=== PATIENT | male | born 1960 | race Caucasian/White ===

== ENCOUNTER 2019-03-31 00:51 | Day surgery (SDC) | payer BC, SELFPAY ==
[2019-03-28 16:12] VITALS: BMI 34.0
[2019-03-31] MEDS: LACTATED RINGERS 1,000 ML 150 ML IV CONT (08:14)
[2019-03-31 08:17] VITALS: BP 178/81; PULSE 71; RESP 16; TEMP 36.5; O2SAT 97
[2019-03-31 08:17] LABS: Glucose Point of Care 259 (65-105)
--- NOTE | 2019-03-31 08:21 | PM.HPGS ---
History of Present Illness History of Present Illness Consent: Risks, benefits, and alternatives have been discussed and questions answered. Patient agrees to proceed with procedure. Chief complaint: Hx Colon Polyps Narrative: Fazal Lentz is a 58 year old W male referred for screening colonoscopy secondary to history of colonic polyps. Patient has small adenomatous polyp removed 7 years ago. Patient is asymptomatic and there is no family history of colon polyps PMFSH Past Medical History Medical History Diabetes High blood pressure High cholesterol Social History Social History Smoking status: Never smoker Alcohol intake: current Meds Home Medications and Allergies Home Medications Medication Instructions Recorded Confirmed Type fenofibrate 160 mg tablet 160 mg PO DAILY 03/21/19 03/28/19 History lisinopril 40 mg tablet 40 mg PO DAILY 03/21/19 03/28/19 History metformin 1,000 mg tablet 1,000 mg PO BID 03/21/19 03/28/19 History irbesartan 150 mg PO DAILY 03/28/19 03/28/19 History sildenafil 50 mg PO PRN PRN 03/28/19 03/28/19 History Allergies Allergy/AdvReac Type Severity Reaction Status Date / Time No Known Allergies Allergy Verified 03/28/19 10:36 Vital Signs Vital Signs - 24 hr 03/31/19 08:17 Temperature 36.5 C Pulse Rate 71 Respiratory Rate 16 Blood Pressure 178/81 H Pulse Oximetry 97 Exam Const: Orientation/consciousness: patient oriented x3 Resp: Auscultation: clear to auscultation bilaterally Cardio: Rate: regular rate Rhythm: regular rhythm Heart sounds: no murmurs GI: GI Palp: Yes Soft to palpation, No Tenderness to palpation present (GI), Yes No hepatosplenomegaly present and No Palpable mass present Auscultation: normal bowel sounds Neuro: General: patient oriented x3 and no focal motor deficits Extrem: General: no pedal edema Assessment and Plan Additional Plan Screening colonoscopy secondary history of colonic polyps
--- NOTE | 2019-03-31 08:32 | WPDANESEPPF ---
Anes - Initial Pre Proc Eval Procedure: Operation Date: 03/31/19 09:00 Proposed Procedures p Screening Colonoscopy - Jhony Garcia MD Date/Time: 03/31/19 08:32 Surgeon: Jhony Garcia MD Pre Op Diagnosis: Hx Colon Polyps Patient Data Age: 58 Gender: M Height: 5 ft 9 in Weight: 104 kg Last Vital Signs Temp 36.5 C 03/31/19 08:17 Pulse 71 03/31/19 08:17 Resp 16 03/31/19 08:17 BP 178/81 H 03/31/19 08:17 Pulse Ox 97 03/31/19 08:17 Allergies Allergy/AdvReac Type Severity Reaction Status Date / Time No Known Allergies Allergy Verified 03/28/19 10:36 Home Medications Medication Instructions Recorded Confirmed Type fenofibrate 160 mg tablet 160 mg PO DAILY 03/21/19 03/28/19 History lisinopril 40 mg tablet 40 mg PO DAILY 03/21/19 03/28/19 History metformin 1,000 mg tablet 1,000 mg PO BID 03/21/19 03/28/19 History irbesartan 150 mg PO DAILY 03/28/19 03/28/19 History sildenafil 50 mg PO PRN PRN 03/28/19 03/28/19 History Laboratory Tests 03/31/19 08:13 POC Capillary Glucose 259 mg/dl H mg/dl (65-105) Patient hx anesthesia problems: none Family hx anesthesia problems: none [facility] Past Medical History Medical History (Updated 03/31/19 @ 08:34 by Wilberto Montoya MD) Diabetes High blood pressure High cholesterol OLAMIDE (obstructive sleep apnea) Family History Family History Father Lung cancer Coronary artery disease Mother Hearing loss Unknown Heart disease Social History Social History Smoking status: Never smoker Alcohol intake: current Anes - Eval Final PreProcedure Day of Procedure 03/31/19 08:32 Patient weight: obese Heart: regular rate and rhythm Lungs: clear to auscultation Airway: Mallampati scale class II Neurological: alert and oriented Last oral intake: >/= 8 hours ASA classification: III Emergent: no Anesthetic plan: proceed Anesthesia type and monitoring: general GIVS and standard monitoring Informed Consent: The patient's anesthetic plan and its attendant risks and benefits were discussed with the patient/family/POA. Questions were solicited and answers provided to the satisfaction of the patient/family/POA.
[2019-03-31 09:43] VITALS: BP 128/76; PULSE 69; RESP 19; O2SAT 97
[2019-03-31 09:53] VITALS: BP 150/90; PULSE 73; RESP 15; O2SAT 97
[2019-03-31 10:12] VITALS: BP 164/92; PULSE 64; RESP 15; O2SAT 99
--- NOTE | 2019-03-31 10:15 | SUR.PHASEII ---
Pt having MRI tomorrow. Information on [facility] given with instructions to notify MRI facility before having MRI. Patient and family stated understanding.
== END 2019-03-31 10:14 | disposition home or self-care (01) ==
PROVIDERS: PCP Emergency Medicine; Visit Provider Internal Medicine Gastroenterology
PROC: 0DJD8ZZ Inspection of Lower Intestinal Tract, Via Natural or Artificial Opening Endoscopic (ICD-10-PCS; CPT 45378; principal; 2019-03-31 09:00)
DX: Z12.11 Encounter for screening for malignant neoplasm of colon (principal); K63.5 Polyp of colon; K57.30 Diverticulosis of large intestine without perforation or abscess without bleeding; I10 Essential (primary) hypertension; E78.00 Pure hypercholesterolemia, unspecified; E11.9 Type 2 diabetes mellitus without complications; G47.33 Obstructive sleep apnea (adult) (pediatric); Z79.84 Long term (current) use of oral hypoglycemic drugs; E66.9 Obesity, unspecified; Z68.33 Body mass index [BMI] 33.0-33.9, adult
CPT/HCPCS: 45385; 88305; J2001; J2704; J7120

== ENCOUNTER → 2019-04-01 10:19 | Outpatient (CLI) | payer BC, SELFPAY ==
--- NOTE | ~2019-04-01 | US_ITS ---
EXAMINATION: US aorta DATE: 04/01/2019 10:49 INDICATION: Family history of abdominal aortic aneurysm. TECHNIQUE: Grayscale, color Doppler, and pulsed Doppler images of the aorta and common iliac arteries were obtained. COMPARISON: None. FINDINGS: The aorta is normal in caliber. The right common iliac artery is normal in caliber. The left common i liac artery is normal in caliber. IMPRESSION: 1. No abdominal aortic aneurysm. Reviewed, dictated and finalized at location A. [facility]
== END ==
PROVIDERS: PCP Emergency Medicine; Visit Provider Emergency Medicine
DX: Z82.49 Family history of ischemic heart disease and other diseases of the circulatory system (principal)
CPT/HCPCS: 76775

== ENCOUNTER → 2020-05-12 00:50 | Outpatient (CLI) | payer BC, SELFPAY ==
[2020-05-12 19:12] LABS: SARS-CoV-2 RNA PCR Negative
== END ==
PROVIDERS: PCP Emergency Medicine; Visit Provider Internal Medicine Gastroenterology
DX: Z01.812 Encounter for preprocedural laboratory examination (principal); Z20.822 Contact with and (suspected) exposure to COVID-19
CPT/HCPCS: C9803; U0003; U0005

== ENCOUNTER 2020-05-15 01:40 | Day surgery (SDC) | payer BC, SELFPAY ==
[2020-05-03 13:29] VITALS: BMI 33.8
--- NOTE | 2020-05-15 08:23 | P.PNAN_ITS ---
Anes - Initial Pre Proc Eval Procedure: Operation Date: 05/15/20 09:30 Proposed Procedures p Screening Colonoscopy - Basim Kim MD Date/Time: 05/15/20 08:23 Surgeon: Basim Kim MD Pre Op Diagnosis: Hx Of Colon Polyps Patient Data Age: 59 Gender: M Height: 5 ft 9 in Weight: 104 kg Allergies Allergy/AdvReac Type Severity Reaction Status Date / Time banana Allergy Severe Swelling Verified 05/03/20 13:32 of Lip/Tongue/Throat Fish Containing Products Allergy Severe Swelling Verified 05/03/20 13:32 of Lip/Tongue/Throat Home Medications Medication Instructions Recorded Confirmed Type fenofibrate 160 mg tablet 160 mg PO DAILY 03/21/19 05/03/20 History lisinopril 40 mg tablet 40 mg PO DAILY 03/21/19 05/03/20 History metformin 1,000 mg tablet 1,000 mg PO BID 03/21/19 05/03/20 History irbesartan 150 mg PO DAILY 03/28/19 05/03/20 History Patient hx anesthesia problems: none Family hx anesthesia problems: none [facility] Past Medical History Medical History (Updated 03/31/19 @ 08:34 by Wilberto Montoya MD) Diabetes High blood pressure High cholesterol OLAMIDE (obstructive sleep apnea) Family History Family History Father Lung cancer Coronary artery disease Mother Hearing loss Unknown Heart disease Social History Social History Smoking status: Never smoker Alcohol intake: current Drinks per week: 2 Substance use: never Substance use type: does not use Living arrangements: with family Spiritual care concerns: No Anes - Eval Final PreProcedure Day of Procedure 05/15/20 08:23 Patient weight: obese Heart: regular rate and rhythm Lungs: clear to auscultation Airway: Mallampati scale class II Neurological: alert and oriented Last oral intake: >/= 8 hours ASA classification: III Emergent: no Anesthetic plan: proceed Anesthesia type and monitoring: general GIVS and standard monitoring Informed Consent: The patient's anesthetic plan and its attendant risks and benefits were discussed with the patient/family/POA. Questions were solicited and answers provided to the satisfaction of the patient/family/POA.
[2020-05-15 08:32] LABS: Glucose Point of Care 181 (65-105)
[2020-05-15] MEDS: LACTATED RINGERS 1,000 ML 150 ML IV CONT (08:37)
[2020-05-15 08:44] VITALS: BP 172/86; PULSE 70; RESP 18; TEMP 36.2; O2SAT 100
[2020-05-15 08:47] VITALS: BMI 34.6
--- NOTE | 2020-05-15 08:59 | PM.HPGS ---
History of Present Illness History of Present Illness Consent: Risks, benefits, and alternatives have been discussed and questions answered. Patient agrees to proceed with procedure. Chief complaint: Hx Of Colon Polyps Narrative: Fazal Lentz is a 59 year old male here for colon cancer screening. He has history of polyps Review of Systems Review of Systems: All systems reviewed & are unremarkable except as noted in HPI and below PMFSH Past Medical History Medical History Diabetes High blood pressure High cholesterol OLAMIDE (obstructive sleep apnea) Family History Family History Father Lung cancer Coronary artery disease Mother Hearing loss Unknown Heart disease Social History Social History Smoking status: Never smoker Alcohol intake: current Drinks per week: 2 Substance use: never Substance use type: does not use Living arrangements: with family Spiritual care concerns: No Meds Home Medications and Allergies Home Medications Medication Instructions Recorded Confirmed Type fenofibrate 160 mg tablet 160 mg PO DAILY 03/21/19 05/15/20 History lisinopril 40 mg tablet 40 mg PO DAILY 03/21/19 05/15/20 History metformin 1,000 mg tablet 1,000 mg PO BID 03/21/19 05/15/20 History irbesartan 150 mg PO DAILY 03/28/19 05/15/20 History Allergies Allergy/AdvReac Type Severity Reaction Status Date / Time banana Allergy Severe Swelling Verified 05/03/20 13:32 of Lip/Tongue/Throat Fish Containing Products Allergy Severe Swelling Verified 05/03/20 13:32 of Lip/Tongue/Throat Vital Signs Vital Signs - 24 hr 05/15/20 08:44 Temperature 36.2 C L Pulse Rate 70 Respiratory Rate 18 Blood Pressure 172/86 H Pulse Oximetry 100 Exam Resp: Auscultation: clear to auscultation bilaterally Cardio: Rate: regular rate Rhythm: regular rhythm GI: GI Palp: Yes Soft to palpation and No Tenderness to palpation present (GI) Assessment and Plan Assessment and plan (1) Colon cancer screening: Code(s): Z12.11 - Encounter for screening for malignant neoplasm of colon Status: Acute Assessment and Plan: Colonoscopy with possible biopsy or polypectomy or cautery or injection of substances.
--- NOTE | 2020-05-15 09:16 | PM.HPGS ---
History of Present Illness History of Present Illness Consent: Risks, benefits, and alternatives have been discussed and questions answered. Patient agrees to proceed with procedure. Chief complaint: Hx Of Colon Polyps Narrative: Fazal Lentz is a 59 year old male here for colon cancer screening and follow-up of an incompletely removed polyp Review of Systems Review of Systems: All systems reviewed & are unremarkable except as noted in HPI and below PMFSH Past Medical History Medical History Diabetes High blood pressure High cholesterol OLAMIDE (obstructive sleep apnea) Family History Family History Father Lung cancer Coronary artery disease Mother Hearing loss Unknown Heart disease Social History Social History Smoking status: Never smoker Alcohol intake: current Drinks per week: 2 Substance use: never Substance use type: does not use Living arrangements: with family Spiritual care concerns: No Meds Home Medications and Allergies Home Medications Medication Instructions Recorded Confirmed Type fenofibrate 160 mg tablet 160 mg PO DAILY 03/21/19 05/15/20 History lisinopril 40 mg tablet 40 mg PO DAILY 03/21/19 05/15/20 History metformin 1,000 mg tablet 1,000 mg PO BID 03/21/19 05/15/20 History irbesartan 150 mg PO DAILY 03/28/19 05/15/20 History Allergies Allergy/AdvReac Type Severity Reaction Status Date / Time banana Allergy Severe Swelling Verified 05/03/20 13:32 of Lip/Tongue/Throat Fish Containing Products Allergy Severe Swelling Verified 05/03/20 13:32 of Lip/Tongue/Throat Vital Signs Vital Signs - 24 hr 05/15/20 08:44 Temperature 36.2 C L Pulse Rate 70 Respiratory Rate 18 Blood Pressure 172/86 H Pulse Oximetry 100 Exam Resp: Auscultation: clear to auscultation bilaterally Cardio: Rate: regular rate Rhythm: regular rhythm GI: GI Palp: Yes Soft to palpation and No Tenderness to palpation present (GI) Assessment and Plan Assessment and plan (1) Personal history of colonic polyps: Code(s): Z86.010 - Personal history of colonic polyps Status: Acute Assessment and Plan: Colonoscopy with possible biopsy or polypectomy or cautery or injection of substances.
[2020-05-15 09:41] VITALS: BP 152/93; PULSE 76; RESP 22; O2SAT 98
[2020-05-15 09:51] VITALS: BP 154/77; PULSE 64; RESP 22; O2SAT 99
[2020-05-15 10:01] VITALS: BP 169/93; PULSE 66; RESP 20; O2SAT 100
--- NOTE | 2020-05-15 10:10 | SUR.PHASEII ---
PT STATES HE HAS NOT TAKEN HIS BLOOD PRESSURE MEDS TODAY BUT WILL UPON ARRIVAL HOME.
== END 2020-05-15 10:18 | disposition home or self-care (01) ==
PROVIDERS: PCP Emergency Medicine; Visit Provider Internal Medicine Gastroenterology
PROC: 0DJD8ZZ Inspection of Lower Intestinal Tract, Via Natural or Artificial Opening Endoscopic (ICD-10-PCS; CPT 45378; principal; 2020-05-15 09:30)
DX: Z12.11 Encounter for screening for malignant neoplasm of colon (principal); D12.3 Benign neoplasm of transverse colon; K57.30 Diverticulosis of large intestine without perforation or abscess without bleeding; E11.9 Type 2 diabetes mellitus without complications; I10 Essential (primary) hypertension; E78.00 Pure hypercholesterolemia, unspecified; G47.33 Obstructive sleep apnea (adult) (pediatric); Z79.84 Long term (current) use of oral hypoglycemic drugs; E66.9 Obesity, unspecified; Z68.34 Body mass index [BMI] 34.0-34.9, adult
CPT/HCPCS: 45385; 82948; 88305; J2704; J7120

== ENCOUNTER 2021-04-03 08:22 | Outpatient (CLI) | payer OTHER, SELFPAY ==
[2021-04-03 18:56] LABS: Basophils Absolute Auto 0.1 K/mm3 (0.0-0.1); Basophils Percent Auto 1.2 % (0.2-1.2); Eosinophils Absolute Auto 0.5 K/mm3 (0-0.3); Eosinophils Percent Auto 9.8 % (0-4.4); Hematocrit 45.1 % (42.0-52.0); Hemoglobin 14.3 g/dL (14.0-18.0); Immature Granulocyte Absolute 0.01 K/mm3 (0.00-0.031); Immature Granulocyte Percent A 0.2 % (0-0.5); Mean Corpuscular HGB Conc 31.7 g/dl (32-36); Mean Corpuscular Hemoglobin 31.2 pg (26-34); Mean Corpuscular Volume 98.3 fl (80-100); Mean Platelet Volume 12.8 fl (7.4-10.4); Monocytes Absolute Auto 0.4 K/mm3 (0.1-0.6); Monocytes Percent Auto 7.2 % (2.6-8.5); Neutrophils Absolute Auto 2.9 K/mm3 (1.3-6.7); Neutrophils Percent Auto 57.6 % (45.5-73.1); Platelet Count Result 206 k/mm3 (150-375); Red Blood Count 4.59 M/mm3 (4.6-6.20); Red Cell Distribution Width 12.4 % (11.5-14.5)
[2021-04-03 19:16] LABS: Alanine Aminotransferase 32 U/L (4-50); Albumin Level 4.6 g/dL (3.5-5.1); Alkaline Phosphatase 64 U/L (38-126); Anion Gap 7 mmol/L (8-16); Aspartate Amino Transferase 26 U/L (17-59); Bilirubin,Total 0.4 mg/dL (0.2-1.3); Blood Urea Nitrogen 13 mg/dL (9-20); Calcium 10.2 mg/dL (8.4-10.2); Carbon Dioxide 28 mmol/L (22-30); Chloride 104 mmol/L (98-107); Cholesterol 137 mg/dL (0-200); Estimated Glomerular Filt Rate > 60; Glucose 197 mg/dL (65-110); HDL Direct 42 mg/dL; Potassium 4.5 mmol/L (3.4-5.0); Sodium 139 mmol/L (137-145); Triglycerides 237 mg/dL (<150)
[2021-04-03 19:30] LABS: LDL Cholesterol Direct 63 mg/dL
[2021-04-03 19:31] LABS: Hemoglobin A1C 8.2 % (<5.7)
[2021-04-03 19:45] LABS: Creatinine Urine 93.1 mg/dL
[2021-04-03 19:47] LABS: Prostate Specific Antigen 1.3 ng/mL (< OR = 4.0)
[2021-04-03 19:49] LABS: MALB Creatinine Ratio 8.4 mg/g (0-30); Microalbumin Urine Random 7.8 mg/L (0-16.7)
[2021-04-07 14:59] LABS: Testosterone Free 81.3 pg/mL (35.0-155.0); Testosterone Total 437 ng/dL (250-1100)
== END 2021-04-03 08:23 | disposition home or self-care (01) ==
LOC: ANHBWCLAB 08:24
PROVIDERS: PCP Family Medicine; Visit Provider Family Medicine
DX: Z00.00 Encounter for general adult medical examination without abnormal findings (principal); E11.9 Type 2 diabetes mellitus without complications; N52.9 Male erectile dysfunction, unspecified
CPT/HCPCS: 36415; 80053; 80061; 82043; 83036; 84153; 84402; 84403; 85025; G0103

== ENCOUNTER 2021-07-23 07:43 | Outpatient (CLI) | payer OTHER, SELFPAY ==
[2021-07-23 21:03] LABS: Hemoglobin A1C 7.8 % (<5.7)
[2021-07-23 21:13] LABS: Creatinine Urine 266.2 mg/dL
[2021-07-23 21:18] LABS: MALB Creatinine Ratio 6.3 mg/g (0-30); Microalbumin Urine Random 16.9 mg/L (0-16.7)
== END 2021-07-23 07:44 | disposition home or self-care (01) ==
PROVIDERS: PCP Family Medicine; Visit Provider Family Medicine
DX: E11.9 Type 2 diabetes mellitus without complications (principal)
CPT/HCPCS: 36415; 82043; 83036

== ENCOUNTER 2022-01-27 13:52 | Outpatient (CLI) | payer OTHER, SELFPAY ==
[2022-01-27 19:07] LABS: Alanine Aminotransferase 30 U/L (6-50); Albumin Level 4.6 g/dL (3.5-5.1); Alkaline Phosphatase 95 U/L (38-126); Anion Gap 14 mmol/L (8-16); Aspartate Amino Transferase 98 U/L (17-59); Bilirubin,Total 0.6 mg/dL (0.2-1.3); Blood Urea Nitrogen 15 mg/dL (9-20); Calcium 9.7 mg/dL (8.4-10.2); Carbon Dioxide 22 mmol/L (22-30); Chloride 102 mmol/L (98-107); Estimated Glomerular Filt Rate > 60; Glucose 182 mg/dL (65-110); Potassium 4.5 mmol/L (3.4-5.0); Sodium 138 mmol/L (137-145)
== END 2022-01-27 13:53 | disposition home or self-care (01) ==
LOC: ANHBWCLAB 13:53
PROVIDERS: PCP Family Medicine; Visit Provider Family Medicine
DX: E11.9 Type 2 diabetes mellitus without complications (principal); E87.1 Hypo-osmolality and hyponatremia; G47.33 Obstructive sleep apnea (adult) (pediatric); I10 Essential (primary) hypertension; I25.10 Atherosclerotic heart disease of native coronary artery without angina pectoris; I26.92 Saddle embolus of pulmonary artery without acute cor pulmonale; I46.9 Cardiac arrest, cause unspecified; I50.9 Heart failure, unspecified; I95.1 Orthostatic hypotension
CPT/HCPCS: 36415; 80053

== ENCOUNTER 2022-02-26 07:28 | Outpatient (RCR) | payer OTHER, SELFPAY ==
[2022-02-10 09:30] VITALS: BMI 25.7
== END 2022-03-28 15:46 | disposition home or self-care (01) ==
LOC: ANHWOC 07:28
PROVIDERS: PCP Family Medicine; Visit Provider Family Medicine
DX: L24.A9 Irritant contact dermatitis due friction or contact with other specified body fluids (principal); L92.9 Granulomatous disorder of the skin and subcutaneous tissue, unspecified
CPT/HCPCS: 99212; 99213; G0463

== ENCOUNTER 2022-05-07 11:49 | Outpatient (CLI) | payer OTHER, SELFPAY ==
[2022-05-07 19:21] LABS: Basophils Percent Auto 0.6 % (0.2-1.2); Eosinophils Absolute Auto 0.3 K/mm3 (0-0.3); Eosinophils Percent Auto 3.7 % (0-4.4); Hematocrit 39.9 % (42.0-52.0); Hemoglobin 12.7 g/dL (14.0-18.0); Immature Granulocyte Absolute 0.02 K/mm3 (0.00-0.031); Immature Granulocyte Percent A 0.3 % (0-0.5); Lymphocytes Absolute Auto 1.33 K/mm3 (0.9-3.2); Lymphocytes Percent Auto 18.8 % (18.3-44.2); Mean Corpuscular HGB Conc 31.8 g/dl (32-36); Mean Corpuscular Hemoglobin 29.5 pg (26-34); Mean Corpuscular Volume 92.6 fl (80-100); Mean Platelet Volume 10.8 fl (7.4-10.4); Monocytes Absolute Auto 0.5 K/mm3 (0.1-0.6); Monocytes Percent Auto 6.8 % (2.6-8.5); Neutrophils Percent Auto 69.8 % (45.5-73.1); Platelet Count Result 332 k/mm3 (150-375); Red Blood Count 4.31 M/mm3 (4.6-6.20); Red Cell Distribution Width 14.8 % (11.5-14.5); White Blood Count 7.1 K/mm3 (4.5-10.0)
[2022-05-07 20:07] LABS: Creatinine Urine 68.9 mg/dL
[2022-05-07 20:13] LABS: Alanine Aminotransferase 46 U/L (6-50); Albumin Level 4.6 g/dL (3.5-5.1); Alkaline Phosphatase 50 U/L (38-126); Anion Gap 11 mmol/L (8-16); Aspartate Amino Transferase 70 U/L (17-59); Bilirubin,Total 0.5 mg/dL (0.2-1.3); Blood Urea Nitrogen 18 mg/dL (9-20); Calcium 9.9 mg/dL (8.4-10.2); Carbon Dioxide 27 mmol/L (22-30); Chloride 101 mmol/L (98-107); Estimated Glomerular Filt Rate > 60; Glucose 147 mg/dL (65-110); Potassium 4.4 mmol/L (3.4-5.0); Sodium 139 mmol/L (137-145)
[2022-05-07 20:15] LABS: Microalbumin Urine Random 64.8 mg/L (0-16.7)
[2022-05-07 20:44] LABS: Hemoglobin A1C 6.3 % (<5.7)
== END 2022-05-07 11:50 | disposition home or self-care (01) ==
LOC: ANHBWCLAB 11:50
PROVIDERS: PCP Family Medicine; Visit Provider Family Medicine
DX: D64.9 Anemia, unspecified (principal); E11.9 Type 2 diabetes mellitus without complications; E87.1 Hypo-osmolality and hyponatremia; G47.33 Obstructive sleep apnea (adult) (pediatric); I10 Essential (primary) hypertension; I25.10 Atherosclerotic heart disease of native coronary artery without angina pectoris; I26.92 Saddle embolus of pulmonary artery without acute cor pulmonale; I50.9 Heart failure, unspecified; G62.9 Polyneuropathy, unspecified; R29.898 Other symptoms and signs involving the musculoskeletal system
CPT/HCPCS: 36415; 80053; 82043; 82607; 83036; 85025

== ENCOUNTER 2022-06-23 11:00 | Outpatient (RCR) | payer OTHER, SELFPAY ==
[2022-03-21 15:33] VITALS: PULSE 85
== END 2022-06-23 14:52 | disposition home or self-care (01) ==
LOC: ANHCPREHAB 11:00
PROVIDERS: PCP Family Medicine; Visit Provider Family Medicine
DX: I25.2 Old myocardial infarction (principal)
CPT/HCPCS: 93798

== ENCOUNTER 2022-08-14 11:30 | Outpatient (CLI) | payer OTHER, SELFPAY ==
--- NOTE | ~2022-08-14 | XR_ITS ---
Clinical Indication: Abnormal weight loss PA and lateral views of the chest: Comparison: None Findings: The lungs are clear, without evidence of focal consolidation or pleural effusion. Cardiome diastinal silhouette is within normal limits. Bones and soft tissues are unremarkable. Impression: Normal chest. Reviewed, dictated and finalized at location . Impression: Normal chest.
[2022-08-14 19:34] LABS: Alanine Aminotransferase 27 U/L (6-50); Albumin Level 4.6 g/dL (3.5-5.1); Alkaline Phosphatase 48 U/L (38-126); Anion Gap 12 mmol/L (8-16); Aspartate Amino Transferase 117 U/L (17-59); Bilirubin,Total 0.5 mg/dL (0.2-1.3); Blood Urea Nitrogen 25 mg/dL (9-20); Carbon Dioxide 23 mmol/L (22-30); Chloride 102 mmol/L (98-107); Cholesterol 107 mg/dL (0-200); Estimated Glomerular Filt Rate 56; Glucose 148 mg/dL (65-110); HDL Direct 40 mg/dL; Potassium 4.3 mmol/L (3.4-5.0); Sodium 137 mmol/L (137-145); Triglycerides 153 mg/dL (<150)
[2022-08-14 19:38] LABS: Basophils Percent Auto 0.6 % (0.2-1.2); Eosinophils Absolute Auto 0.6 K/mm3 (0-0.3); Eosinophils Percent Auto 8.5 % (0-4.4); Hematocrit 40.6 % (42.0-52.0); Immature Granulocyte Absolute 0.02 K/mm3 (0.00-0.031); Immature Granulocyte Percent A 0.3 % (0-0.5); Lymphocytes Absolute Auto 1.38 K/mm3 (0.9-3.2); Lymphocytes Percent Auto 20.5 % (18.3-44.2); Mean Corpuscular Hemoglobin 30.5 pg (26-34); Mean Corpuscular Volume 95.3 fl (80-100); Mean Platelet Volume 10.6 fl (7.4-10.4); Monocytes Absolute Auto 0.6 K/mm3 (0.1-0.6); Monocytes Percent Auto 8.2 % (2.6-8.5); Neutrophils Absolute Auto 4.2 K/mm3 (1.3-6.7); Neutrophils Percent Auto 61.9 % (45.5-73.1); Platelet Count Result 302 k/mm3 (150-375); Red Blood Count 4.26 M/mm3 (4.6-6.20); Red Cell Distribution Width 12.7 % (11.5-14.5); White Blood Count 6.7 K/mm3 (4.5-10.0)
[2022-08-14 21:14] LABS: LDL Cholesterol Direct < 30 mg/dL
== END 2022-08-14 11:31 | disposition home or self-care (01) ==
LOC: ANHBWCLAB 11:31
PROVIDERS: PCP Family Medicine; Visit Provider Nurse Practitioner Adult Health
DX: R63.4 Abnormal weight loss (principal); I10 Essential (primary) hypertension
CPT/HCPCS: 36415; 71046; 80053; 80061; 84443; 85025

== ENCOUNTER → 2022-09-16 10:38 | Outpatient (CLI) | payer OTHER, SELFPAY ==
--- NOTE | ~2022-09-16 | CT_ITS ---
Clinical Indication: Abnormal weight loss CT Scan of the Chest, Abdomen, and Pelvis with Contrast: Technique: Contiguous sections were acquired throughout the chest, abdomen, and pelvis after intraven ous administration of 100 cc of Omnipaque 350. Dose reduction technique was used on this scan by ciara montes automated exposure control and iterative reconstruction technique. The dose-length product (DL P) was 900.12 mGy-cm. Findings: There is no evidence of any significant mediastinal, hilar or axillary lymphadenopathy. Coronary [place] ry calcifications are present. There is no evidence of pleural or pericardial effusion. The lungs are clear. No pulmonary nodules or infiltrates are noted. The liver, spleen, pancreas, gallbladder, adrenals and kidneys are within normal limits. There are at herosclerotic calcifications of the aorta. No lymphadenopathy. No bowel obstruction or bowel wall thickening. There is no evidence to suggest acute appendicitis. Questionable mild urinary bladder wall thickening versus underdistention. Prostate gland is mildly en larged. No ascites. Impression: Possible cystitis. Correlate with urinalysis as indicated. No other significant findings. Reviewed, dictated and finalized at location . Impression: Possible cystitis. Correlate with urinalysis as indicated. No other significant findings.
[2022-09-16 11:03] LABS: Estimated Glomerular Filt Rate > 60
== END ==
PROVIDERS: PCP Family Medicine; Visit Provider Nurse Practitioner Adult Health
DX: D64.9 Anemia, unspecified (principal); R63.4 Abnormal weight loss; R74.8 Abnormal levels of other serum enzymes
CPT/HCPCS: 71260; 74177; Q9967

== ENCOUNTER 2022-10-08 09:34 | Outpatient (CLI) | payer OTHER, SELFPAY ==
[2022-10-08 19:46] LABS: Appearance Urine Clear (Clear); Bilirubin Urine Negative (Negative); Blood Urine Negative (Negative); Color Urine Yellow (Yellow); Glucose Urine UA 3+ mg/dL (Negative); Ketones Urine Negative (Negative); Leukocyte Esterase Ur Negative LEU/UL (Negative); Nitrate Urine Negative (Negative); Protein Urine Negative (Negative); Specific Grav Ur 1.028 (1.001-1.035); pH Urine 5.5 (5.0-9.0)
[2022-10-08 19:50] LABS: Add Urine Microscopic? NO
== END 2022-10-08 09:35 | disposition home or self-care (01) ==
LOC: ANHBWCLAB 09:35
PROVIDERS: PCP Family Medicine; Visit Provider Nurse Practitioner Adult Health
DX: N32.89 Other specified disorders of bladder (principal)
CPT/HCPCS: 81003

== ENCOUNTER 2022-11-05 21:31 | Observation (INO) | payer OTHER, SELFPAY ==
--- NOTE | ~2022-11-05 | NM_ITS ---
EXAMINATION: NM isaak stress w perfusion DATE: 11/06/2022 13:01 INDICATION: Non-ST elevation myocardial infarction. TECHNIQUE: Rest images were obtained following intravenous administration of 8.6 mCi Tc99m tetrofosmi n (Myoview). The patient was infused intravenously with Lexiscan (regadenoson). Then, 28.3 mCi Tc99m tetrofosmin (Myoview) was administered intravenously, and supine and prone stress images were obtaine d. Data was reconstructed into short axis and horizontal and vertical long axis SPECT images. Gated S PECT images were also obtained. COMPARISON: Chest CT 09/16/2022 FINDINGS: There is a large, severe, fixed perfusion defect involving mid to basal anterolateral and i nferolateral garcia and basal inferior wall of left ventricle, consistent with infarct. There is no s egmental wall motion abnormality. Left ventricular ejection fraction measures 69%. IMPRESSION: 1. Large area of severe infarct involving mid to basal anterolateral and inferolateral garcia and basa l inferior wall of left ventricle. 2. Normal left ventricular ejection fraction measuring 69%. Reviewed, dictated and finalized at location A. IMPRESSION: 1. Large area of severe infarct involving mid to basal anterolateral and infero lateral garcia and basal inferior wall of left ventricle. 2. Normal left ventricular ejection fraction measuring 69%.
--- NOTE | ~2022-11-05 | XR_ITS ---
EXAMINATION: XR chest 2V DATE: 11/05/2022 22:14 INDICATION: Chest pain TECHNIQUE: PA and lateral views of the chest are obtained. COMPARISON: 08/14/2022 FINDINGS: There are minimal opacities of the lung bases. No pleural effusion or pneumothorax. Cardiom egaly is noted. There is mild thoracic spondylosis. IMPRESSION: 1. Minimal opacities of the lung bases which could reflect atelectasis versus pneumonia versus pulmon arthur edema. Reviewed, dictated and finalized at location F. IMPRESSION: 1. Minimal opacities of the lung bases which could reflect atelectasis versus p neumonia versus pulmonary edema.
--- NOTE | 2022-11-05 21:32 | ECG_ITS ---
Measurements Intervals [place] Rate: 142 P: MA: 0 QRS: 75 QRSD: 115 T: 0 QT: 277 QTc: 426 Interpretive Statements ATRIAL FIBRILLATION WITH RAPID VENTRICULAR RESPONSE INTRAVENTRICULAR CONDUCTION DELAY BORDERLINE ST-T WAVE ABNORMALITY- ANTEROLAT/INF LEADS ABNORMAL ECG NO PREVIOUS ECG AVAILABLE FOR COMPARISON Electronically Signed On 11-06-2022 6:33:33 CDT by Abdoul Araujo D.O.
[2022-11-05 21:51] VITALS: BP 178/107; PULSE 132; RESP 19; O2SAT 99
[2022-11-05 21:53] LABS: Basophils Percent Auto 0.5 % (0.2-1.2); Eosinophils Absolute Auto 0.5 K/mm3 (0-0.3); Eosinophils Percent Auto 6.5 % (0-4.4); Hematocrit 40.8 % (42.0-52.0); Hemoglobin 13.1 g/dL (14.0-18.0); Immature Granulocyte Absolute 0.02 K/mm3 (0.00-0.031); Immature Granulocyte Percent A 0.3 % (0-0.5); Lymphocytes Absolute Auto 1.66 K/mm3 (0.9-3.2); Lymphocytes Percent Auto 22.5 % (18.3-44.2); Mean Corpuscular HGB Conc 32.1 g/dl (32-36); Mean Corpuscular Hemoglobin 30.5 pg (26-34); Mean Corpuscular Volume 95.1 fl (80-100); Mean Platelet Volume 11.3 fl (7.4-10.4); Monocytes Absolute Auto 0.4 K/mm3 (0.1-0.6); Monocytes Percent Auto 4.9 % (2.6-8.5); Neutrophils Absolute Auto 4.8 K/mm3 (1.3-6.7); Neutrophils Percent Auto 65.3 % (45.5-73.1); Platelet Count Result 249 k/mm3 (150-375); Red Blood Count 4.29 M/mm3 (4.6-6.20); Red Cell Distribution Width 12.5 % (11.5-14.5); White Blood Count 7.4 K/mm3 (4.5-10.0)
[2022-11-05 22:03] LABS: Alanine Aminotransferase 24 U/L (6-50); Albumin Level 4.2 g/dL (3.5-5.1); Alkaline Phosphatase 85 U/L (38-126); Anion Gap 11 mmol/L (8-16); Aspartate Amino Transferase 29 U/L (17-59); Bilirubin,Total 0.4 mg/dL (0.2-1.3); Blood Urea Nitrogen 22 mg/dL (9-20); Calcium 9.6 mg/dL (8.4-10.2); Carbon Dioxide 19 mmol/L (22-30); Chloride 106 mmol/L (98-107); Estimated CRCL calculation 66 ml/min; Estimated Glomerular Filt Rate > 60; Glucose 281 mg/dL (65-110); Lipase 83 U/L (23-300); Sodium 136 mmol/L (137-145)
[2022-11-05 22:04] LABS: Partial Thromboplastin Time 32.5 SECONDS (22.3-36.8)
[2022-11-05 22:14] LABS: Troponin I 0.024 ng/mL (0.000-0.034)
[2022-11-05 23:08] VITALS: BP 161/117; PULSE 140
[2022-11-05] MEDS: dilTIAZem 100 MG/100 ML 100 MG/100 ML BAG IV CONT (23:08)
[2022-11-05] MEDS: dilTIAZem HCl INJ 25 MG/5 ML VIAL 20 MG IV PUSH (23:08)
[2022-11-05 23:11] LABS: Magnesium 2.1 mg/dL (1.6-2.3)
[2022-11-05 23:21] LABS: NT Pro B Type Natriuretic Pept 731 pg/mL (19.9-100)
--- NOTE | 2022-11-05 23:27 | ED.GENADULT ---
HPI - General Adult General Chief complaint: Chest Pain Stated complaint: chest pain Time Seen by Provider: 11/05/22 22:18 History of Present Illness HPI narrative: Patient 62-year-old gentleman who presents the emergency department with chief complaint of chest discomfort. The patient reports he has history of cardiac disease has had 7 stents placed in his heart. Patient reports that today he started feeling a tightness in his chest states it was pretty mild and reports that its improved since he is arrived to the emergency department. The patient denies diaphoresis denies radiating to his arms patient reports no prior history of atrial fibrillation, does report that he is on a DOAC and also antiplatelet therapy Related Data Home Medications Medication Instructions Recorded Confirmed metformin 1,000 mg tablet 1,000 mg PO DAILY 08/14/22 08/14/22 Allergies Allergy/AdvReac Type Severity Reaction Status Date / Time banana Allergy Severe Swelling Verified 08/14/22 11:07 of Lip/Tongue/Throat Fish Containing Products Allergy Severe Swelling Verified 08/14/22 11:07 of Lip/Tongue/Throat Review of Systems Review of Systems: A 10 system review of systems was completed on the patient and is negative except for what is stated in the HPI. Nursing and ancillary documentation was reviewed. [facility] Past Medical History Medical History Diabetes High blood pressure High cholesterol OLAMIDE (obstructive sleep apnea) Family History Family History Father Lung cancer Coronary artery disease Mother Hearing loss Unknown Heart disease Social History Social History Smoking status: Never smoker Alcohol intake: current Drinks per week: 2 Substance use: never Substance use type: does not use Lack of Transportation: No Lack of Food: Never True Current Housing: I Have Housing Concerned About Future Housing: No Difficulty Paying Gas/Electric Bills: No Difficulty Paying for Meds: No Currently Unemployed: No Education: Master's Degree or Higher Difficulty w/ Childcare or Family Care: No Living arrangements: alone Spiritual care concerns: No Exam Narrative: GENERAL: Well-appearing, well-nourished, and in no acute distress. HEAD: Normocephalic, atraumatic. EYES: PERRLA and EOMI. ENT: Nares clear, no rhinorrhea or epistaxis. Mucous membranes moist. NECK: Supple. CHEST: Clear to auscultation. No respiratory distress. HEART: Tachycardic irregular rate and rhythm. No murmur heard. Normal peripheral pulses. ABDOMEN: Soft, nontender, nondistended, normal active bowel sounds. EXTREMITIES: Normal range of motion. No edema. SKIN: Warm, dry, no rash. NEURO: No focal deficits. Alert and oriented x3. PSYCH: Normal mood and affect. Course Vital Signs Vital signs: Vital Signs Pulse Rate 132 H 11/05/22 21:51 Respiratory Rate 11/05/22 21:51 Blood Pressure 178/107 H 11/05/22 21:51 Pulse Oximetry 99 11/05/22 21:51 Oxygen Delivery Room Air 11/05/22 21:51 Pulse Rate 140 H 11/05/22 23:08 Respiratory Rate 11/05/22 21:51 Blood Pressure 161/117 H 11/05/22 23:08 Pulse Oximetry 99 11/05/22 21:51 Oxygen Delivery Room Air 11/05/22 21:51 Medical Decision Making [facility] Narrative Medical decision making narrative: Differential diagnosis includes A-fib with RVR, dysrhythmia, electrolyte abnormality, ACS EKG showed atrial fibrillation with rapid ventricular response with a rate of 142 Oratory studies were obtained which showed normal CBC with a hemoglobin of 13.1 electrolytes are within normal limits with a potassium of 4.0 magnesium was 2.1 troponin is 0.024 BNP was 731 Chest x-ray showed IMPRESSION: 1. Minimal opacities of the lung bases which coul
[2022-11-05 23:31] VITALS: O2SAT 95
--- NOTE | 2022-11-05 23:34 | PM.IMHP ---
H&P: HPI History of Present Illness Date/Time: 11/05/22 23:34 Chief Complaint: INDIGESTION Narrative: This is a 62-year-old male with past medical history significant for coronary artery disease, type diabetes mellitus, obstructive sleep apnea. Patient comes in due to epigastric discomfort which he attributed to indigestion, denies shortness of breath, lightheadedness, syncope or near syncope no nausea no vomiting has been his usual state of health no cough, no chest pain. In emergency room patient was found to have atrial fibrillation with rapid ventricular response. Review of Systems Review of Systems: Epigastric discomfort, indigestion Constitutional: Constitutional: Denies chills, Denies fatigue, Denies fever(s), Denies malaise and Denies poor appetite Eyes: Eyes: Denies change in vision ENT: Denies dysphagia, Denies vertigo, Denies dizziness and Denies odynophagia Cardiovascular: Cardiovascular: Denies chest pain at rest, Denies chest pain with activity, Denies irregular heart rhythm, Denies lightheadedness, Denies radiating jaw, neck or arm pain, Denies palpitations and Denies dyspnea Respiratory: Respiratory: Denies chest congestion and Denies cough Gastrointestinal: Gastrointestinal: Reports abdominal pain, Denies diarrhea, Denies nausea and Denies vomiting Genitourinary: Genitourinary: Denies dysuria Musculoskeletal: Musculoskeletal: Denies arthralgias Integumentary/Breasts: Skin/Breast: Denies rash Neurologic: Denies Sensory deficit (Neuro) and Denies weakness Psychiatric: Psychiatric: Reports no additional psychiatric complaints and Reports as per HPI Endocrine: Endocrine: Denies cold intolerance, Denies heat intolerance, Denies polyuria and Denies palpitations Hematologic/Lymphatic: Hematologic/Lymphatic: Reports no additional hematologic/lymphatic complaints and Reports as per HPI Allergic/Immunologic: Allergic/Immunologic: Reports no additional allergic/immunologic complaints and Reports as per HPI [facility] Past Medical History Medical History Diabetes High blood pressure High cholesterol OLAMIDE (obstructive sleep apnea) Family History Family History Father Lung cancer Coronary artery disease Mother Hearing loss Unknown Heart disease Social History Social History Smoking status: Never smoker Alcohol intake: current Drinks per week: 2 Substance use: never Substance use type: does not use Lack of Transportation: No Lack of Food: Never True Current Housing: I Have Housing Concerned About Future Housing: No Difficulty Paying Gas/Electric Bills: No Difficulty Paying for Meds: No Currently Unemployed: No Education: Master's Degree or Higher Difficulty w/ Childcare or Family Care: No Living arrangements: alone Spiritual care concerns: No Meds Home Medications and Allergies Home Medications Medication Instructions Recorded Confirmed Type empagliflozin 10 mg tablet 10 mg PO DAILY #90 tabs 06/10/22 11/06/22 Rx (Jardiance) carvedilol 3.125 mg tablet (Coreg) 3.125 mg PO BIDWM #180 tabs 08/01/22 11/06/22 Rx clopidogrel 75 mg tablet See Rx Instructions .Route 08/07/22 11/06/22 Rx .COMPLEX #90 tabs metformin 1,000 mg tablet 1,000 mg PO DAILY 08/14/22 11/06/22 History epinephrine 0.3 mg/0.3 mL 0.3 mg (0.3 mL) IM ONCE Allergy to 09/02/22 11/06/22 Rx injection, auto-injector (EpiPen fish #2 ea 2-Familia) apixaban 5 mg tablet (Eliquis) See Rx Instructions .Route 11/03/22 11/06/22 Rx .COMPLEX #180 tabs Allergies Allergy/AdvReac Type Severity Reaction Status Date / Time banana Allergy Severe Swelling Verified 08/14/22 11:07 of Lip/Tongue/Throat Fish Containing Products Allergy Severe Swelling Verified 08/14/22 11:07 of Lip/Tongue/Throat Eleni
[2022-11-05 23:42] VITALS: PULSE 89
[2022-11-06] VITALS (21 sets, daily range): BP systolic 111–134; BP diastolic 61–76; PULSE 57–78; RESP 16–20; TEMP 35.7–36.9; O2SAT 95–100; BMI 26.1
--- NOTE | 2022-11-06 | ECHO_ITS ---
Patient Info Name: Fazal Lentz Age: 62 years : 1960 Gender: Male Ht: 69 in Wt: 176 lbs BSA: 1.98 m2 HR: 58 bpm BP: 111 / 64 mmHg Heart Rhythm: Sinus Rhythm Technical Quality: Good Exam Date: 11/06/2022 3:50 PM Exam Location: [facility] Pulmonary Exam Room: 201 Patient Status: Inpatient Admit Date: 11/05/2022 Staff Ordering Physician: Sonia Matute MD Patient Care Coordinator: Desi Joseph RDCS Attending Provider: Lalo Flores MD Referring Physician: Giovani ELIAS; Exam Type: CA echo doppler color flow Study Info Indications - AFIB NSTEMI Complete two-dimensional, color flow and Doppler transthoracic echocardiogram is performed. Summary 1. Complete two-dimensional, color flow and Doppler transthoracic echocardiogram is performed. 2. Left ventricular chamber dimension is normal. 3. Left ventricular systolic function is normal, estimated at 55-60%. 4. There is mildly increased left ventricular wall thickness. 5. The left ventricular diastolic function is grade II diastolic dysfunction. 6. The basal inferior wall is akinetic. 7. The mid inferior wall, basal anterolateral wall, mid anterolateral wall, basal inferolateral wall, and mid inferolateral wall are hypokinetic. 8. Left atrial chamber dimension is mildly enlarged. 9. There is moderate aortic valve sclerosis. 10. There is mild to moderate mitral valve regurgitation. 11. The mitral valve has thickened leaflets. 12. There is mild tricuspid valve regurgitation. Left Ventricle Left ventricular chamber dimension is normal. Left ventricular systolic function is normal, estimated at 55-60%. There is mildly increased left ventricular wall thickness. The left ventricular diastolic function is grade II diastolic dysfunction. The basal inferior wall is akinetic. The mid inferior wall, basal anterolateral wall, mid anterolateral wall, basal inferolateral wall, and mid inferolateral wall are hypokinetic. All other garcia appear normal. Right Ventricle Right ventricular chamber dimension is normal. Right ventricular systolic function is normal. Left Atria Left atrial chamber dimension is mildly enlarged. Right Atria Right atrial chamber dimension is normal. Atrial Septum Intact interatrial septum visualized by color flow imaging. Aortic Valve The aortic valve is trileaflet. There is moderate aortic valve sclerosis. There is no aortic valve stenosis. There is trace aortic valve regurgitation. Pulmonic Valve The pulmonic valve is normal. There is no pulmonic valve stenosis. There is trace pulmonic regurgitation. Mitral Valve The mitral valve has thickened leaflets. There is no mitral valve stenosis. There is mild to moderate mitral valve regurgitation. Tricuspid Valve The tricuspid valve leaflets are normal. There is no significant tricuspid valve stenosis. There is mild tricuspid valve regurgitation. No pulmonary hypertension, estimated pulmonary arterial systolic pressure is 33 mmHg. Pericardium/Pleural The pericardium appears normal. There is no pericardial effusion. Inferior Vena Cava Normal inferior vena cava with >50% collapse upon inspiration consistent with normal right atrial pressure, 10 mmHg. Aorta The aortic root size at the sinus of Valsalva is normal. Left Ventricular Outflow Tract Name Value Normal LVOT 2D
--- NOTE | 2022-11-06 02:34 | ADMGEN ---
This patient, Fazal Lentz, was admitted to IMU Room 201-01 at 0120. Patient/family oriented to hospital policies and general routines including ID bracelet, bed and alarms, visiting hours, pain management, procedures, bathroom and other care routines, personal items, smoking policy, room service/diet, and visiting hours. Information on how to activate the Rapid Response Team has been discussed. Patient/Family are encouraged to report perceived risks to care and to ask questions if they do not understand what they are told or what they should do.
--- NOTE | 2022-11-06 05:10 | ECG_ITS ---
Measurements Intervals [place] Rate: 58 P: 65 [place]: 161 QRS: 74 QRSD: 109 T: 27 QT: 447 QTc: 443 Interpretive Statements SINUS BRADYCARDIA MINIMAL Q WAVES- INFERIOR LEADS BASELINE WANDER- V1 BORDERLINE ECG COMPARED TO ECG 11/05/2022 21:34:55 SINUS BRADYCARDIA NOW PRESENT Electronically Signed On 11-06-2022 6:43:27 CDT by Abdoul Araujo D.O.
[2022-11-06] MEDS: ENOXAPARIN 80 MG/0.8 ML SYRINGE SUB-Q (06:23)
[2022-11-06] MEDS: carvediloL 3.125 MG TABLET PO (08:27)
[2022-11-06] MEDS: CLOPIDOGREL BISULFATE 75 MG TABLET BY MOUTH (08:27)
--- NOTE | 2022-11-06 08:43 | PM.CNCAR ---
Assessment and Plan Assessment and plan (1) Type 2 CO (myocardial infarction): Code(s): I21.A1 - Myocardial infarction type 2 Status: Acute Assessment and Plan: Patient presents with chest discomfort and elevated troponins. This is most likely a result of the AFib RVR rather than an ACS with plaque rupture non-STEMI. Had some mild ST depression inferior laterally on his admitting EKG when AFib RVR. I do think he needs an ischemia evaluation in view of the significantly elevated troponin level. 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 Vania Burroughs. --if small area of ischemia or fixed defect, continue medical therapy. --hold Eliquis and continue Lovenox for now. (2) Atrial fibrillation with rapid ventricular response: Code(s): I48.91 - Unspecified atrial fibrillation Status: Acute Assessment and Plan: New onset of AFib RVR, with resultant cardia ischemia. Counseled patient about AFib, likelihood of recurrence. Need to step up medications, either increase the carvedilol, add diltiazem, or try sotalol. --increase carvedilol to 12.5 mg b.i.d. and see if the patient tolerates this overnight --DC Cardizem drip --Check TSH, Echo --resume Eliquis on discharge --if all is well, possible discharge tomorrow. --advised to call for an appointment in the near future with his biofuels product development manager. (3) Coronary artery disease: Code(s): I25.10 - Atherosclerotic heart disease of [place] coronary artery without angina pectoris Status: Acute Assessment and Plan: History of CAD, RCA STEMI in October 2021 with cardiogenic shock, history of 7 stents including a left main stent. --very complex cardiac history and anatomy. --continue Plavix, statin, beta-marilyn (4) History of sleep apnea: Code(s): Z86.69 - Personal history of other diseases of the nervous system and sense organs Status: Acute Assessment and Plan: Has not needed CPAP since the patient lost a lot a weight. However, sleep apnea is a strong contributing factor to recurrent AFib. Will re-evaluate. --ApneaLink tonight History of Present Illness History of Present Illness Consult date/time: 11/06/22 08:43 Reason For Visit: Atrial Fibrillation with Rapid Ventricular Respons Narrative: Fazal Lentz is a 62-year-old male whom we are asked to see at the request of Dr. Fox for advice and opinion regarding his AFib and non-STEMI, in consultation. The patient is followed by Dr. Vania Burroughs at [facility]. He has history of coronary disease, VFib arrest secondary to STEMI requiring Impella support in October 2021, PCI x7 (x1 to distal left main, x2 to Left anterior descending, x4 to RCA which was thought to be the culprit vessel, intra procedural PE a arrest requiring CPR and Impella), tracheostomy decannulation (11/2021), hospitalized 1 month later for saddle PE. He has been maintained on chronic anticoagulation with Eliquis for the pulmonary embolus, and Plavix for the stents. Also: hypertension diabetes, and OLAMIDE on CPAP, PE. Echo 12/2021: EF 66%, mild LVH, diastolic dysfunction. No history of any atrial fibrillation. The patient has been in his normal state of health, working in his [employer] and garden with no angina, and recently taking a trip to [place] which required a lot a walking, with no angina or LO. He has had a couple episodes of heartburn after meals relieved with Tums. Last night after dinner he had an episode of epigastric burning and heartburn that did not go away with Tums and he also felt heart racing. No LO. When he came to the emergency room he was in new onset AFib RVR. He was started on a Cardizem drip and after is heart rate was controlled his discomfort and palpitations resolved and he converted to sinus rhythm and has done
--- NOTE | 2022-11-06 09:46 | EST_ITS ---
Patient Info Name: Fazal Lentz Age: 62 years : 1960 Gender: Male Ht: 69 in Wt: 170 lbs BSA: 1.95 m2 Exam Date: 11/06/2022 11:54 AM Exam Location: [facility] Stress Patient Status: Inpatient Admit Date: 11/05/2022 Staff Ordering Physician: Sonia Matute MD Attending Provider: Lalo Flores MD Exercise Technologist: Adali Diamond RDCS Nurse: Adwoa Enriquez APN Exam Type: CA stress isaak w NM Study Info Indications R07.9 - Chest pain, unspecified A regadenoson stress test was performed. Summary 1. Occasional PVCs. 2. No abnormal ST/T wave changes diagnostic of ischemia with Lexiscan. 3. Please correlate with nuclear medicine images, reported separately. 4. Stress test supervised by Adwoa Enriquez NP. Stress test interpreted by Mariaelena Hill MD. Protocol: Manual Mode Stress ECG Details Stage: REST Duration (min): 0 min : 47 sec Zamora: --- Speed (mph): 0.0 Grade (%): 0 HR (bpm): 60 SBP (mmHg): 116 DBP (mmHg): 65 METS: --- Stage: REST Duration (min): 4 min : 40 sec Zamora: --- Speed (mph): 0.0 Grade (%): 0 HR (bpm): 53 SBP (mmHg): 116 DBP (mmHg): 65 METS: --- Stage: STAGE 2 Duration (min): 0 min : 55 sec Zamora: --- Speed (mph): 0.0 Grade (%): 0 HR (bpm): 59 SBP (mmHg): 116 DBP (mmHg): 65 METS: --- Stage: STAGE 2 Duration (min): 1 min : 33 sec Zamora: --- Speed (mph): 0.0 Grade (%): 0 HR (bpm): 68 SBP (mmHg): 125 DBP (mmHg): 69 METS: --- Stage: RECOVERY Duration (min): 0 min : 21 sec Zamora: --- Speed (mph): 0.0 Grade (%): 0 HR (bpm): 77 SBP (mmHg): 125 DBP (mmHg): 69 METS: --- Stage: RECOVERY Duration (min): 1 min : 21 sec Zamora: --- Speed (mph): 0.0 Grade (%): 0 HR (bpm): 79 SBP (mmHg): 115 DBP (mmHg): 65 METS: --- Stage: RECOVERY Duration (min): 2 min : 21 sec Zamora: --- Speed (mph): 0.0 Grade (%): 0 HR (bpm): 75 SBP (mmHg): 115 DBP (mmHg): 65 METS: --- Stage: RECOVERY Duration (min): 3 min : 21 sec Zamora: --- Speed (mph): 0.0 Grade (%): 0 HR (bpm): 71 SBP (mmHg): 100 DBP (mmHg): 59 METS: --- Stage: RECOVERY Duration (min): 4 min : 21 sec Zamora: --- Speed (mph): 0.0 Grade (%): 0 HR (bpm): 74 SBP (mmHg): 100 DBP (mmHg): 59 METS: --- Stage: RECOVERY Duration (min): 4 min : 44 sec Zamora: --- Speed (mph): 0.0 Grade (%): 0 HR (bpm): 73 SBP (mmHg): 113 DBP (mmHg): 65 METS: --- Rest HR: 53 bpm Peak HR: 79 bpm Rest Sys BP: 116 mmHg Peak Sys BP: 125 mmHg Max Pred HR: 156 bpm % Max Pred HR: 51 % Target HR: 133 bpm Max RPP: 9,875 bpm*mmHg Total Time: 1 min : 38 sec Rest Vicente BP: 65 mmHg Peak Vicente BP: 69 mmHg Resting ECG Sinus bradycardia. Stress ECG Sinus rhythm. No abnormal ST/T wave changes diagnostic of ischemia with Lexiscan. Arrhythmias Occasional PVCs. Report Signatures
--- NOTE | 2022-11-06 11:03 | PC.NURSE ---
Pt to nuclear medicine for stress test via wheelchair.
--- NOTE | 2022-11-06 11:39 | PM.IMPN ---
Progress Note: A&P Assessment and Plan (1) Atrial fibrillation with rapid ventricular response: Code(s): I48.91 - Unspecified atrial fibrillation Status: Acute Assessment and Plan: Heart rate controlled diltiazem drip discontinued and patient started on oral Coreg. Cardiology consult Continue to monitor (2) Elevated troponin: Code(s): R77.8 - Other specified abnormalities of plasma proteins Status: Acute Assessment and Plan: Patient is asymptomatic Cardiology consulted. Patient going for [place] today (3) Coronary artery disease: Code(s): I25.10 - Atherosclerotic heart disease of [place] coronary artery without angina pectoris Status: Acute Assessment and Plan: Continue home meds Chest pain-free (4) HTN (hypertension): Code(s): I10 - Essential (primary) hypertension Status: Acute Assessment and Plan: Resume home meds (5) OLAMIDE (obstructive sleep apnea): Code(s): G47.33 - Obstructive sleep apnea (adult) (pediatric) Status: Acute Assessment and Plan: CPAP at nighttime Subjective Date/time seen: 11/06/22 11:39 Interval history: No chest pain, shortness of breath Review of Systems Review of Systems: Epigastric discomfort, indigestion Constitutional: Constitutional: Denies chills, Denies fatigue, Denies fever(s), Denies malaise and Denies poor appetite Eyes: Eyes: Denies change in vision ENT: Denies dysphagia, Denies vertigo, Denies dizziness and Denies odynophagia Cardiovascular: Cardiovascular: Denies chest pain at rest, Denies chest pain with activity, Denies irregular heart rhythm, Denies lightheadedness, Denies radiating jaw, neck or arm pain, Denies palpitations and Denies dyspnea Respiratory: Respiratory: Denies chest congestion and Denies cough Gastrointestinal: Gastrointestinal: Reports abdominal pain, Denies diarrhea, Denies nausea and Denies vomiting Genitourinary: Genitourinary: Denies dysuria Musculoskeletal: Musculoskeletal: Denies arthralgias Integumentary/Breasts: Skin/Breast: Denies rash Neurologic: Denies Sensory deficit (Neuro) and Denies weakness Psychiatric: Psychiatric: Reports no additional psychiatric complaints and Reports as per HPI Endocrine: Endocrine: Denies cold intolerance, Denies heat intolerance, Denies polyuria and Denies palpitations Hematologic/Lymphatic: Hematologic/Lymphatic: Reports no additional hematologic/lymphatic complaints and Reports as per HPI Allergic/Immunologic: Allergic/Immunologic: Reports no additional allergic/immunologic complaints and Reports as per HPI Exam Const: General: comfortable, no acute distress (Well-appearing), well developed, alert, awake and average body habitus Nutritional Appearance: average body habitus Orientation/consciousness: patient oriented x3 HENMT: Head: normal to inspection, normocephalic and atraumatic Ears: hearing grossly normal bilaterally Face/Nose/Sinus: normal facial exam Face and sinus: normal facial exam Eyes: General: appearance normal, both eyes and all related structures Pupils: Equal, round and reactive pupils present EOM: EOMs intact bilaterally Neck: Neck: full ROM, no lymphadenopathy and no JVD Thyroid: thyroid normal Lymphatic: no lymphadenopathy noted Resp: Effort & Inspection: normal respiratory effort and able to speak in complete sentences Auscultation: clear to auscultation bilaterally Cardio: Jugular venous distension: no JVD Rate: regular rate Rhythm: regular rhythm Heart sounds: S1 normal heart sound present and S2 normal heart sound present GI: GI Palp: Yes Soft to palpation and Yes No hepatosplenomegaly present : General: Yes deferred Skin: Rashes: no rashes Wounds: no wounds Neuro: General: patient oriented x3 and CN's II-XI intact bilaterally Cranial nerves: Yes CN's II-XII intact bilaterally and Yes Equal, round and reactive pupils present Cognition (Neuro): normal cog
--- NOTE | 2022-11-06 12:57 | PC.NURSE ---
Pt returned from nuclear medicine via wheelchair. No issues noted
[2022-11-06] MEDS: carvediloL 12.5 MG TABLET PO (17:00)
--- NOTE | 2022-11-06 17:14 | PC.NURSE ---
On 11/06/22, the student, Anabella [facility], provided care and completed [employer] documentation on this patient. I have reviewed the student's documentation and agree with the findings.
[2022-11-07] VITALS (7 sets, daily range): BP systolic 125–131; BP diastolic 76–77; PULSE 59–69; RESP 14–18; TEMP 36.6–36.7; O2SAT 98
--- NOTE | 2022-11-07 07:24 | PM.PNCARD ---
Progress Note: A&P Assessment and Plan (1) Atrial fibrillation with rapid ventricular response: Code(s): I48.91 - Unspecified atrial fibrillation Status: Acute (2) Type 2 TX (myocardial infarction): Code(s): I21.A1 - Myocardial infarction type 2 Status: Acute Plan 62-year-old man with known coronary disease multivessel PCI including left main intervention just over a year ago S is this [facility]. He also has history of DVT/PE has been anticoagulated with apixaban. He enters the hospital here with a symptomatic episode of atrial fib with RVR. He is back in sinus rhythm and feels well. Luis Alberto Lexiscan nuclear stress test yesterday is negative for ischemia and left ventricular systolic function appears to be intact. From my perspective he is stable for discharge today. 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 As such follow-up in our office will not be scheduled Selvin Ye MD [facility] Subjective Date/time seen: Date of service: 11/07/22 07:24 Interval history: Follow-up visit in this 62-year-old man with known coronary artery disease previous multivessel PCI at [facility]. Admitted here with a symptomatic episode of atrial fibrillation. Patient feels well this morning and offers no complaints. Results of yesterday's nuclear stress test were discussed in detail. Exam Const: General: comfortable and no acute distress Eyes: Sclera: sclerae normal Pupils: Equal, round and reactive pupils present Neck: Neck: supple and no JVD Resp: Effort & Inspection: normal respiratory effort Auscultation: clear to auscultation bilaterally Cardio: Rate: regular rate Rhythm: regular rhythm GI: GI Palp: Yes Soft to palpation Auscultation: normal bowel sounds Skin: General skin exam: normal color Neuro: Other: Alert and oriented x3 Objective Data Vital Signs Vital Signs: Vital Signs - 24 hr 11/06/22 08:00 11/06/22 08:27 11/06/22 08:00 Temperature 35.7 C L Pulse Rate 64 58 L Respiratory Rate 16 Blood Pressure 111/64 Pulse Oximetry 97 Oxygen Delivery Room Air 11/06/22 13:11 11/06/22 08:00 11/06/22 10:00 Temperature 36.9 C Pulse Rate 57 L 66 59 L Respiratory Rate 16 Blood Pressure 122/66 Pulse Oximetry 100 Oxygen Delivery 11/06/22 13:28 11/06/22 14:00 11/06/22 16:08 Temperature 36.5 C Pulse Rate 78 66 64 Respiratory Rate 20 Blood Pressure 114/63 Pulse Oximetry 98 Oxygen Delivery 11/06/22 16:00 11/06/22 17:00 11/06/22 16:00 Temperature Pulse Rate 67 62 Respiratory Rate Blood Pressure Pulse Oximetry Oxygen Delivery Room Air 11/06/22 18:00 11/06/22 20:00 11/06/22 20:37 Temperature 36.6 C Pulse Rate 67 67 61 Respiratory Rate 20 16 Blood Pressure 134/76 Pulse Oximetry 98 98 Oxygen Delivery Room Air 11/06/22 20:00 11/06/22 22:00 11/06/22 23:00 Temperature 36.5 C Pulse Rate 68 68 65 Respiratory Rate 18 Blood Pressure 128/71 Pulse Oximetry 98 Oxygen Delivery 11/06/22 23:23 11/07/22 00:00 11/07/22 00:00 Temperature Pulse Rate 65 64 Respiratory Rate 18 18 Blood Pressure Pulse Oximetry 98 98 Oxygen Delivery Room Air Room Air 11/07/22 02:00 11/07/22 04:00 11/07/22 04:00 Temperature Pulse Rate 63 63 61 Respiratory Rate 18 Blood Pressure Pulse Oximetry 98 Oxygen Delivery Room Air 11/07/22 04:53 11/07/22 06:00 Temperature 36.6 C Pulse Rate 60 59 L Respiratory Rate 18 Blood Pressure 131/77 Pulse Oximetry 98 Oxygen Delivery Intake/Output Intake/Output: Intake & Output 11/04/22 11/05/22 11/06/22 11/07/22 23:59 23:59 23:59 23:59 Intake Total 797.5 1600 Output Total 550 Balance 247.5 1600 Meds/Results Medications: Active Medications Generic Name Dose Route Start Last Admin Trade Name Freq PRN Reason Stop Dose Admin Carvedilol 12.5 mg 11/06
--- NOTE | 2022-11-07 09:29 | P.DS_ITS ---
DS: Admitting Diagnosis Discharge Date 11/07/2022 Admitting Diagnosis AFib with RVR DS: Discharge Diagnosis Discharge Diagnosis (1) Atrial fibrillation with rapid ventricular response: Code(s): I48.91 - Unspecified atrial fibrillation Status: Acute DS: Summary Hospital Course Hospital Course: 62-year-old man with known coronary disease multivessel PCI including left main intervention just over a year ago.? He also has history of DVT/PE has been anti coagulated with apixaban.? He presented to the hospital here with a symptomatic episode of atrial fib with RVR.? He was started on Cardizem drip. He is back in sinus rhythm and feels well.? Cardizem drip discontinued. Troponin was elevated. lexiscan nuclear stress test yesterday is negative for ischemia and left ventricular systolic function appears to be intact.? 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 Patient is being discharged home Time Spent with Patient Time attestation: Total time spent providing and/or coordinating discharge services: DS: Data Data Completed and Pending Labs on day of discharge: Labs from last 24 hours 11/06/22 04:10 TSH (Reflex) 1.350 Discharge Plan Discharge Consulting providers: Danni Powell Discharging Clinician: Lalo Flores Anticipated Discharge Date/Time: 11/07/22 09:29 Patient Disposition: Home, Self-Care Activity: no preference Diet: heart healthy Patient Instructions: Antibiotic Form, Apixaban (By mouth) Stand Alone Forms: General Discharge Information Follow-up/Referrals: Jacob Tam MD [Primary Care Provider] - Discharge Medications: Continued metformin 1,000 mg tablet 1,000 mg PO DAILY Jardiance 10 mg tablet 10 mg PO DAILY Qty: 90 1RF carvedilol [Coreg] 3.125 mg tablet 3.125 mg PO BIDWM Qty: 180 1RF clopidogrel 75 mg tablet See Rx Instructions .ROUTE .COMPLEX Qty: 90 0RF Dose Instruction: TAKE 1 TABLET BY MOUTH EVERY MORNING Rx Instructions: TAKE 1 TABLET BY MOUTH EVERY MORNING epinephrine [EpiPen 2-Familia] 0.3 mg/0.3 mL auto-injector 0.3 mg IM ONCE Qty: 2 1RF Rx Instructions: as a single dose; may repeat once Eliquis 5 mg tablet See Rx Instructions .ROUTE .COMPLEX Qty: 180 0RF Dose Instruction: TAKE 1 TABLET BY MOUTH EVERY 12 HOURS Rx Instructions: TAKE 1 TABLET BY MOUTH EVERY 12 HOURS Date of admission: 11/05/22 23:12 Primary Care Provider: Jacob Tam Admitting Provider: Denys Moreno V. Attending physician on admission: Lalo Flores Condition: Stable
[2022-11-07] MEDS: carvediloL 12.5 MG TABLET PO (09:51)
[2022-11-07] MEDS: CLOPIDOGREL BISULFATE 75 MG TABLET BY MOUTH (09:52)
--- NOTE | 2022-11-07 11:51 | PC.NURSE ---
Patient states that he doesn't take Eliquis, it makes him sick. I called and notified Dr Flores. dr Flores wanted me to reiterate the risk and benefits of taking Eliquis and that he is at risk for developing a blood clot or dvt with the afib history. I suggested the patient to speak with his PCP or Dehydrating Press Operator about the issue at his appointment, he agreed.
== END 2022-11-07 10:53 | disposition home or self-care (01) ==
LOC: ANHED 23:30 → ANHIMU 11-06 01:35
PROVIDERS: Internal Medicine Cardiovascular Disease; Admitting Provider Internal Medicine; Emergency Provider Emergency Medicine; PCP Family Medicine; Visit Provider Hospitalist
DX: I21.A1 Myocardial infarction type 2 (principal); I48.91 Unspecified atrial fibrillation; R77.8 Other specified abnormalities of plasma proteins; I25.10 Atherosclerotic heart disease of native coronary artery without angina pectoris; I45.4 Nonspecific intraventricular block; Z95.5 Presence of coronary angioplasty implant and graft; I25.2 Old myocardial infarction; E11.9 Type 2 diabetes mellitus without complications; I10 Essential (primary) hypertension; R00.1 Bradycardia, unspecified; I08.3 Combined rheumatic disorders of mitral, aortic and tricuspid valves; R91.8 Other nonspecific abnormal finding of lung field; E87.1 Hypo-osmolality and hyponatremia; E78.00 Pure hypercholesterolemia, unspecified; Z99.89 Dependence on other enabling machines and devices; G47.33 Obstructive sleep apnea (adult) (pediatric); F10.90 Alcohol use, unspecified, uncomplicated; Z86.69 Personal history of other diseases of the nervous system and sense organs; Z86.718 Personal history of other venous thrombosis and embolism; Z79.01 Long term (current) use of anticoagulants; Z79.02 Long term (current) use of antithrombotics/antiplatelets; Z79.84 Long term (current) use of oral hypoglycemic drugs; Z82.49 Family history of ischemic heart disease and other diseases of the circulatory system
CPT/HCPCS: 36415; 71046; 78452; 80053; 83690; 83735; 83880; 84443; 84484; 85025; 85610; 85730; 93005; 93017; 93306; 94762; 96365; 96366; 96372; 99285; A9270; A9502; G0378; J1650; J2785

== ENCOUNTER 2022-11-19 08:18 | Outpatient (CLI) | payer OTHER, SELFPAY ==
--- NOTE | ~2022-11-19 | US_ITS ---
US art doppler w press LE BI INDICATION: Skin sensation disturbances TECHNIQUE: Segmental pressures and plethysmographic and Doppler waveforms of the brachial and lower e xtremity arteries were obtained. COMPARISON: None. FINDINGS: Right and left brachial artery pressures of 138 mm Hg and 139 mm Hg, respectively, are concordant (no rmal difference <= 30 mmHg). The right ankle-brachial index (YUMIKO) is 1.14 (normal >= 0.9-1.0). The right great toe-brachial index (TBI) is 0.76 (normal >= 0.60). The left YUMIKO is 1.04. The left TBI is 0.68. There is biphasic flow in the lower extremity arteries bi laterally. IMPRESSION: 1. Normal bilateral ankle and toe brachial indices. Reviewed, dictated and finalized at location B.
== END 2022-11-19 08:19 | disposition home or self-care (01) ==
PROVIDERS: PCP Nurse Practitioner Adult Health; Visit Provider Nurse Practitioner Adult Health
DX: R20.8 Other disturbances of skin sensation (principal); G45.9 Transient cerebral ischemic attack, unspecified; R29.898 Other symptoms and signs involving the musculoskeletal system
CPT/HCPCS: 93923

== ENCOUNTER 2023-06-03 09:35 | Outpatient (CLI) | payer OTHER, SELFPAY ==
[2023-06-03 18:27] LABS: Basophils Absolute Auto 0.1 K/mm3 (0.0-0.1); Basophils Percent Auto 0.9 % (0.2-1.2); Eosinophils Absolute Auto 0.4 K/mm3 (0-0.3); Eosinophils Percent Auto 8.3 % (0-4.4); Hematocrit 47.5 % (42.0-52.0); Hemoglobin 15.4 g/dL (14.0-18.0); Immature Granulocyte Absolute 0.01 K/mm3 (0.00-0.031); Immature Granulocyte Percent A 0.2 % (0-0.5); Lymphocytes Absolute Auto 1.23 K/mm3 (0.9-3.2); Lymphocytes Percent Auto 23.1 % (18.3-44.2); Mean Corpuscular HGB Conc 32.4 g/dl (32-36); Mean Corpuscular Hemoglobin 30.9 pg (26-34); Mean Corpuscular Volume 95.2 fl (80-100); Mean Platelet Volume 11.9 fl (7.4-10.4); Monocytes Absolute Auto 0.3 K/mm3 (0.1-0.6); Monocytes Percent Auto 6.2 % (2.6-8.5); Neutrophils Absolute Auto 3.3 K/mm3 (1.3-6.7); Neutrophils Percent Auto 61.3 % (45.5-73.1); Platelet Count Result 204 k/mm3 (150-375); Red Blood Count 4.99 M/mm3 (4.6-6.20); Red Cell Distribution Width 12.7 % (11.5-14.5); White Blood Count 5.3 K/mm3 (4.5-10.0)
[2023-06-03 19:27] LABS: Hemoglobin A1C 7.9 % (<5.7)
[2023-06-03 20:31] LABS: Alanine Aminotransferase 29 U/L (6-50); Albumin Level 4.8 g/dL (3.5-5.1); Alkaline Phosphatase 73 U/L (38-126); Anion Gap 12 mmol/L (4-12); Aspartate Amino Transferase 67 U/L (17-59); Bilirubin,Total 0.7 mg/dL (0.2-1.3); Blood Urea Nitrogen 23 mg/dL (9-20); Calcium 10.4 mg/dL (8.4-10.2); Carbon Dioxide 21 mmol/L (22-30); Chloride 107 mmol/L (98-107); Cholesterol 177 mg/dL (0-200); Estimated Glomerular Filt Rate > 60; Glucose 189 mg/dL (65-110); HDL Direct 40 mg/dL; Magnesium 2.5 mg/dL (1.6-2.3); Sodium 140 mmol/L (137-145); Triglycerides 285 mg/dL (<150)
[2023-06-03 20:42] LABS: LDL Cholesterol Direct 75 mg/dL
[2023-06-03 21:40] LABS: Folic Acid > 20.0 ng/mL (2.76->20)
== END 2023-06-03 09:36 | disposition home or self-care (01) ==
PROVIDERS: PCP Nurse Practitioner Adult Health; Visit Provider Nurse Practitioner Adult Health
DX: G62.9 Polyneuropathy, unspecified (principal); I10 Essential (primary) hypertension; Z12.5 Encounter for screening for malignant neoplasm of prostate; E11.9 Type 2 diabetes mellitus without complications
CPT/HCPCS: 36415; 80053; 80061; 82607; 82746; 83036; 83735; 84153; 84443; 85025; G0103

== ENCOUNTER 2023-07-08 10:02 | Outpatient (CLI) | payer OTHER, SELFPAY ==
--- NOTE | 2023-07-08 11:30 | NEURO_ITS ---
Impression: # Complains of left foot drop and numbness ever since heart attack and stent placement. # Sciatic neuropathy of left lower extremity. # Needle/EMG exam neurogenic in left lower extremity. Nerve Conduction Studies Anti Sensory Summary Table Stim Site NR Peak (ms) P-T Amp (?V) Site1 Site2 Delta-P (ms) Dist (cm) Douglas (m/s) Left Saphenous Anti Sensory (Ant Med Mall) NO RESPONSE 14cm NR 14cm Ant Med Mall 0.0 Right Saphenous Anti Sensory (Ant Med Mall) NO RESPONSE 14cm NR 14cm Ant Med Mall 0.0 Left Sup Fibular Anti Sensory (Ant Lat Mall) NO RESPONSE 14 cm NR 14 cm Ant Lat Mall 16.0 Right Sup Fibular Anti Sensory (Ant Lat Mall) NO RESPONSE 14 cm NR 14 cm Ant Lat Mall 16.0 Left Sural Anti Sensory (Lat Mall) NO RESPONSE Calf NR Calf Lat Mall 16.0 Right Sural Anti Sensory (Lat Mall) NO RESPONSE Calf NR Calf Lat Mall 16.0 Motor Summary Table Stim Site NR Onset (ms) O-P Amp (mV) Site1 Site2 Delta-0 (ms) Dist (cm) Douglas (m/s) Left Peroneal Motor (Vastus Med) NO RESPONSE Ankle NR Popit NR Right Peroneal Motor (Vastus Med) Ankle 4.5 1.1 Popit Ankle 9.6 40.0 42 Popit 14.1 2.0 Left Tibial Motor (Abd Kumar Brev) NO RESPONSE Ankle NR Knee NR Right Tibial Motor (Abd Kumar Brev) Ankle 4.5 0.3 Knee Ankle 10.6 43.0 41 Knee 15.1 0.3 F Wave Studies NR F-Lat (ms) L-R F-Lat (ms) Left Peroneal (Mrkrs) (EDB) NO RESPONSE NR Right Peroneal (Mrkrs) (EDB) 56.42 Left Tibial (Mrkrs) (Abd Hallucis) NO RESPONSE NR Right Tibial (Mrkrs) (Abd Hallucis) 55.20 EMG Side Muscle Nerve Root Ins Act Fibs Amp Dur Recrt Comment Right AntTibialis Dp Br Fibular L4-5 Nml Nml Nml Nml Nml Right Gastroc Tibial S1-2 Nml Nml Nml Nml Nml Right Fibularis Long Sup Br Fibular L5-S1 Nml Nml Nml Nml Nml Right Flex Dig Long Tibial L5-S2 Nml Nml Nml Nml Nml Right Ext Dig Brev Dp Br Fibular L5, S1 Nml Nml Nml Nml Nml Left AntTibialis Dp Br Fibular L4-5 Nml Nml Decr >12ms +3 Left Gastroc Tibial S1-2 Nml Nml Decr >12ms +3 Left Fibularis Long Sup Br Fibular L5-S1 Nml Nml Decr >12ms +3 Left Flex Dig Long Tibial L5-S2 Nml Nml Decr >12ms +3 Left Ext Dig Brev Dp Br Fibular L5, S1 Nml Nml Decr >12ms +3 Right QuadratusFem QuadFemoris L4-5, S1 Nml Nml Nml Nml Nml Left QuadratusFem QuadFemoris L4-5, S1 Nml Nml Nml Nml Nml MTDD
== END 2023-07-08 10:03 | disposition home or self-care (01) ==
LOC: ANHNEURO 10:03
PROVIDERS: PCP Nurse Practitioner Adult Health; Visit Provider Nurse Practitioner Adult Health
DX: G62.9 Polyneuropathy, unspecified (principal)
CPT/HCPCS: 95886; 95911

== ENCOUNTER 2023-08-20 08:15 | Outpatient (CLI) | payer OTHER, SELFPAY ==
[2023-08-20 18:52] LABS: Cholesterol 161 mg/dL (0-200); HDL Direct 40 mg/dL; Triglycerides 157 mg/dL (<150)
[2023-08-20 18:57] LABS: Basophils Absolute Auto 0.1 K/mm3 (0.0-0.1); Basophils Percent Auto 1.2 % (0.2-1.2); Eosinophils Absolute Auto 0.4 K/mm3 (0-0.3); Eosinophils Percent Auto 8.7 % (0-4.4); Hemoglobin 13.9 g/dL (14.0-18.0); Lymphocytes Absolute Auto 1.08 K/mm3 (0.9-3.2); Lymphocytes Percent Auto 22.4 % (18.3-44.2); Mean Corpuscular HGB Conc 31.6 g/dl (32-36); Mean Corpuscular Hemoglobin 30.8 pg (26-34); Mean Corpuscular Volume 97.6 fl (80-100); Mean Platelet Volume 12.3 fl (7.4-10.4); Monocytes Absolute Auto 0.3 K/mm3 (0.1-0.6); Neutrophils Absolute Auto 2.9 K/mm3 (1.3-6.7); Neutrophils Percent Auto 60.7 % (45.5-73.1); Platelet Count Result 182 k/mm3 (150-375); Red Blood Count 4.51 M/mm3 (4.6-6.20); Red Cell Distribution Width 13.1 % (11.5-14.5); White Blood Count 4.8 K/mm3 (4.5-10.0)
[2023-08-20 19:03] LABS: LDL Cholesterol Direct 80 mg/dL
[2023-08-20 19:34] LABS: Alanine Aminotransferase 22 U/L (6-50); Albumin Level 4.5 g/dL (3.5-5.1); Alkaline Phosphatase 70 U/L (38-126); Anion Gap 9 mmol/L (4-12); Aspartate Amino Transferase 93 U/L (17-59); Bilirubin,Total 0.6 mg/dL (0.2-1.3); Blood Urea Nitrogen 30 mg/dL (9-20); Calcium 9.7 mg/dL (8.4-10.2); Carbon Dioxide 23 mmol/L (22-30); Chloride 107 mmol/L (98-107); Estimated Glomerular Filt Rate > 60; Glucose 212 mg/dL (65-110); Potassium 3.9 mmol/L (3.4-5.0); Sodium 139 mmol/L (137-145)
[2023-08-20 20:22] LABS: Folic Acid > 20.0 ng/mL (2.76->20)
[2023-08-20 22:23] LABS: Hemoglobin A1C 8.3 % (<5.7)
[2023-08-23 12:13] LABS: Vitamin B1 61 nmol/L (8-30)
[2023-08-24 19:43] LABS: Immunofixation, Serum Normal pattern.
[2023-08-25 09:54] LABS: Vitamin B6 57.7 ng/mL (2.1-21.7)
[2023-08-25 10:59] LABS: Methylmalonic Acid 387 nmol/L (69-390)
[2023-08-25 12:24] LABS: Zinc 95 mcg/dL (60-130)
== END 2023-08-20 08:16 | disposition home or self-care (01) ==
PROVIDERS: PCP Nurse Practitioner Adult Health; Visit Provider Student in an Organized Health Care Education/Training Program
DX: R29.898 Other symptoms and signs involving the musculoskeletal system (principal)
CPT/HCPCS: 36415; 80053; 80061; 82525; 82607; 82746; 83036; 83090; 83921; 84207; 84425; 84443; 84630; 85025; 86038; 86039; 86334; 86335

== ENCOUNTER 2023-08-21 13:42 | Outpatient (CLI) | payer OTHER, SELFPAY ==
--- NOTE | ~2023-08-21 | MR_ITS ---
EXAMINATION: MR brain/brain stem wo con DATE: 08/21/2023 15:29 INDICATION: Left foot drop and numbness TECHNIQUE: Magnetic resonance imaging (MRI) of the brain and brainstem was performed without intraven ous contrast. Sequences included sagittal and axial T1-weighted SE, axial diffusion-weighted FS SE, a xial T2*-weighted GRE, axial T2-weighted FLAIR, and axial T2-weighted FSE. Apparent diffusion coeffic ient (ADC) maps were created. COMPARISON: None. FINDINGS: There are no areas of restricted diffusion to suggest acute infarction. Small low signal intensity fo cus in the right cerebellar hemisphere without blooming on the T2*weighted imaging which suggests a c oarse dystrophic calcification as opposed to the presence of blood products. No intracranial hemorrha ge or abnormal intracranial mass lesion. There are scattered areas of nonspecific increased T2-weight ed signal intensity in the cerebral white matter, predominantly involving the deep and periventricula r white matter. There are no intraparenchymal signal abnormalities seen on the other pulse sequences. The ventricles are symmetric and normal in size. There are no abnormal extra-axial fluid collections . Flow voids are seen in the cerebral arteries on the T2-weighted sequences consistent with their exp ected patency. Right vertebral artery is dominant. Small mucous retention cyst in the left maxillary sinus. Visualized orbits and soft tissues are unremarkable. IMPRESSION: 1. No acute intracranial process with a few scattered small foci of periventricular predominant white matter T2 hyperintensity which is within normal limits for age and likely sequela of chronic small v essel ischemic disease. Reviewed, dictated and finalized at location B. IMPRESSION: 1. No acute intracranial process with a few scattered small foci of periventric ular predominant white matter T2 hyperintensity which is within normal limits f or age and likely sequela of chronic small vessel ischemic disease.
--- NOTE | ~2023-08-21 | MR_ITS ---
EXAMINATION: MR lumbar spine wo con DATE: 08/21/2023 15:29 INDICATION: Left foot drop and numbness TECHNIQUE: Magnetic resonance imaging (MRI) of the lumbar spine was performed without intravenous con trast. Sequences included sagittal T2-weighted FSE, sagittal T2-weighted FS FSE, sagittal T1-weighted FSE, and axial T2-weighted FSE. COMPARISON: None FINDINGS: Transitional L5 segment which is sacralized bilaterally. There are 4 more caudal nonrib-bearing lumba r segments. 2 mm retrolisthesis L3 on L4. 4 mm retrolisthesis L4 on L5. Chronic appearing minimal lik brittani physiologic anterior wedging at T11 and T12. Lumbar vertebral body heights are normal. Normal ma rrow signal. Minimal disc height loss at L3-L4 and mild posterior predominant disc height loss at L4- L5 with annular fissure. Developmentally small L5-S1 disc space. The conus medullaris terminates at T 12-L1. There is normal signal in the caudal spinal cord. Paravertebral soft tissues are unremarkable. The following disc levels are specifically discussed: T11-T12: The disc does not extend beyond the endplate margin. There is minimal bilateral facet joint osteoarthritis. There is no neural foraminal stenosis. There is no central canal stenosis. T12-L1: The disc does not extend beyond the endplate margin. There is minimal bilateral facet joint o steoarthritis. There is no neural foraminal stenosis. There is no central canal stenosis. L1-L2: The disc does not extend beyond the endplate margin. There is moderate right and moderate left facet joint osteoarthritis. There is no neural foraminal stenosis. There is no central canal stenosi s. L2-L3: Small bilateral foraminal zone disc protrusions. There is mild bilateral facet joint osteoarth ritis. There is mild bilateral neural foraminal stenosis. There is no central canal stenosis. L3-L4: Disc is minimally bulging centrally where it does not extend beyond the more posterior L3 endp late margin but superimposed small bilateral foraminal zone disc protrusions. There is mild right and moderate left facet joint osteoarthritis. There is moderate right and mild to moderate left neural f oraminal stenosis. There is minimal central canal stenosis but with mild narrowing of the left and ri ght lateral recesses. L4-L5: Mild diffuse disc bulge with superimposed annular fissure and small central disc protrusion wi th disc material extending up to 3 mm caudal to the level of the superior endplate of L5. There is mo derate right and moderate to severe left facet joint osteoarthritis. There is mild left and mild to m oderate right neural foraminal stenosis. There is mild central canal stenosis and mild narrowing of t he right lateral recess. L5-S1: The disc does not extend beyond the endplate margin. There is moderate bilateral facet joint o steoarthritis. There is no neural foraminal stenosis. There is no central canal stenosis. IMPRESSION: 1. Mild lower lumbar spondylosis. Reviewed, dictated and finalized at location B.
--- NOTE | ~2023-08-21 | MR_ITS ---
EXAMINATION: MR pelvis wo/w con DATE: 08/21/2023 15:34 INDICATION: Left foot drop and numbness TECHNIQUE: Magnetic resonance imaging (MRI) of the pelvis was performed without intravenous contrast. Sequences included axial, sagittal and coronal T1-weighted FSE and axial T2-weighted FS FSE, axial T 1-weighted FS FSE and post contrast axial, sagittal and coronal T1-weighted FS FSE were also obtained . COMPARISON: CT dated 09/16/2022 FINDINGS: Prostatomegaly measuring 5.3 x 4.5 cm. Bladder is normal. Visualized portions of bowels are unremarka ble. No free fluid in the pelvis. No pathologically enlarged pelvic or inguinal lymphadenopathy. Alig nment is normal with normal marrow signal throughout. No fracture or pathologic marrow replacing proc ess. There is tendinopathy and partial thickness tear at the greater trochanteric insertion of the le ft gluteus medias tendon and mild tendinopathy without tear at the distal left gluteus minimus tendon . There is some surrounding edema including edema at the periphery of the trochanteric bursa consiste nt with mild bursitis. No free fluid in the pelvis. Mild bilateral hip and sacroiliac osteoarthritis. No hip joint effusions. IMPRESSION: 1. Left trochanteric bursitis with mild gluteus minimus tendinopathy and mild gluteus medius medius t endinopathy with partial-thickness tear. Reviewed, dictated and finalized at location B. IMPRESSION: 1. Left trochanteric bursitis with mild gluteus minimus tendinopathy and mild g luteus medius medius tendinopathy with partial-thickness tear.
== END 2023-08-21 13:43 ==
PROVIDERS: PCP Nurse Practitioner Adult Health; Visit Provider Student in an Organized Health Care Education/Training Program
DX: R29.898 Other symptoms and signs involving the musculoskeletal system (principal); G57.00 Lesion of sciatic nerve, unspecified lower limb; M70.62 Trochanteric bursitis, left hip; M47.896 Other spondylosis, lumbar region
CPT/HCPCS: 70551; 72148; 72197; A9577

== ENCOUNTER 2023-11-03 08:26 | Outpatient (CLI) | payer MEDICARE, SELFPAY ==
--- NOTE | 2023-11-03 11:30 | NEURO_ITS ---
Impression: # Complains of left more than right numbness of lower extremities. # Neuropathy of moderate degree. # No responses obtained from left lower extremity although foot jerked. # Needle/EMG exam neurogenic but with no fibs. # Clinical correlation recommended; Findings consistent with axonal neuropathy. Nerve Conduction Studies Anti Sensory Summary Table Stim Site NR Peak (ms) P-T Amp (?V) Site1 Site2 Delta-P (ms) Dist (cm) Douglas (m/s) Left Sup Fibular Anti Sensory (Ant Lat Mall) NO RESPONSE 14 cm NR 14 cm Ant Lat Mall 16.0 Right Sup Fibular Anti Sensory (Ant Lat Mall) 14 cm 4.4 4.9 14 cm Ant Lat Mall 4.4 16.0 36 Left Sural Anti Sensory (Lat Mall) NO RESPONSE Calf NR Calf Lat Mall 16.0 Right Sural Anti Sensory (Lat Mall) Calf 5.5 5.5 Calf Lat Mall 5.5 16.0 29 Motor Summary Table Stim Site NR Onset (ms) O-P Amp (mV) Site1 Site2 Delta-0 (ms) Dist (cm) Douglas (m/s) Left Peroneal Motor (Vastus Med) NO RESPONSE Ankle NR Popit Ankle 0.0 Popit NR Right Peroneal Motor (Vastus Med) Ankle 4.0 2.8 Popit Ankle 11.3 42.0 37 Popit 15.3 2.2 Left Tibial Motor (Abd Kumar Brev) NO RESPONSE Ankle NR Knee Ankle 0.0 Knee NR Right Tibial Motor (Abd Kumar Brev) Ankle 4.7 0.2 Knee Ankle 11.3 43.0 38 Knee 16.0 0.7 F Wave Studies NR F-Lat (ms) L-R F-Lat (ms) Left Peroneal (Mrkrs) (EDB) NO RESPONSE NR Right Peroneal (Mrkrs) (EDB) 60.08 Left Tibial (Mrkrs) (Abd Hallucis) DISPERSED RESPONSE NR Right Tibial (Mrkrs) (Abd Hallucis) 58.36 EMG Side Muscle Nerve Root Ins Act Fibs Amp Dur Recrt Comment Right AntTibialis Dp Br Fibular L4-5 Nml Nml Decr >12ms +2 Right Gastroc Tibial S1-2 Nml Nml Decr >12ms +2 Right Fibularis Long Sup Br Fibular L5-S1 Nml Nml Decr >12ms +2 Right Flex Dig Long Tibial L5-S2 Nml Nml Decr >12ms +2 Right Ext Dig Brev Dp Br Fibular L5, S1 Nml Nml Decr >12ms +2 Right QuadratusFem QuadFemoris L4-5, S1 Nml Nml Decr >12ms +2 Left AntTibialis Dp Br Fibular L4-5 Nml Nml Decr >12ms +3 Left Gastroc Tibial S1-2 Nml Nml Decr >12ms +3 Left Fibularis Long Sup Br Fibular L5-S1 Nml Nml Decr >12ms +3 Left Flex Dig Long Tibial L5-S2 Nml Nml Decr >12ms +3 Left Ext Dig Brev Dp Br Fibular L5, S1 Nml Nml Decr >12ms +3 Left QuadratusFem QuadFemoris L4-5, S1 Nml Nml Decr >12ms +3 MTDD
== END 2023-11-03 08:27 | disposition home or self-care (01) ==
PROVIDERS: PCP Nurse Practitioner Adult Health; Referring Provider Psychiatry & Neurology Neurology; Visit Provider Student in an Organized Health Care Education/Training Program
DX: M21.372 Foot drop, left foot (principal); R29.898 Other symptoms and signs involving the musculoskeletal system
CPT/HCPCS: 95886; 95910

== ENCOUNTER 2023-12-14 08:12 | Outpatient (CLI) | payer MEDICARE, SELFPAY ==
[2023-12-14 19:23] LABS: Alanine Aminotransferase 30 U/L (6-50); Albumin Level 4.5 g/dL (3.5-5.1); Alkaline Phosphatase 78 U/L (38-126); Anion Gap 10 mmol/L (4-12); Aspartate Amino Transferase 70 U/L (17-59); Bilirubin,Total 0.5 mg/dL (0.2-1.3); Blood Urea Nitrogen 25 mg/dL (9-20); Carbon Dioxide 27 mmol/L (22-30); Chloride 102 mmol/L (98-107); Cholesterol 155 mg/dL (0-200); Estimated Glomerular Filt Rate 55; Glucose 243 mg/dL (65-110); HDL Direct 43 mg/dL; Potassium 3.9 mmol/L (3.4-5.0); Sodium 139 mmol/L (137-145); Triglycerides 152 mg/dL (<150)
[2023-12-14 19:34] LABS: LDL Cholesterol Direct 62 mg/dL
[2023-12-14 19:35] LABS: Creatinine Urine 74.7 mg/dL
[2023-12-14 19:52] LABS: MALB Creatinine Ratio 8.6 mg/g (0-30); Microalbumin Urine Random 6.4 mg/L (0-16.7)
== END 2023-12-14 08:13 | disposition home or self-care (01) ==
PROVIDERS: PCP Nurse Practitioner Adult Health; Visit Provider Nurse Practitioner Adult Health
DX: E11.9 Type 2 diabetes mellitus without complications (principal)
CPT/HCPCS: 36415; 80053; 80061; 82043; 82565; 83036

== ENCOUNTER 2024-03-24 10:00 | Outpatient (RCR) | payer MEDICARE, SELFPAY | END 2024-03-24 11:26 | disposition home or self-care (01) | LOC: ANHCPREHAB 10:00 | PROVIDERS: PCP Nurse Practitioner Adult Health | DX: Z95.5 Presence of coronary angioplasty implant and graft (principal) | CPT/HCPCS: 93798 ==

== ENCOUNTER 2024-11-24 07:00 | Outpatient (CLI) | payer MEDICARE, SELFPAY ==
[2024-11-24 19:08] LABS: Alanine Aminotransferase 23 U/L (6-50); Albumin Level 4.5 g/dL (3.5-5.1); Alkaline Phosphatase 67 U/L (38-126); Anion Gap 11 mmol/L (4-12); Aspartate Amino Transferase 66 U/L (17-59); Bilirubin,Total 0.5 mg/dL (0.2-1.3); Blood Urea Nitrogen 20 mg/dL (9-20); Calcium 10.1 mg/dL (8.4-10.2); Carbon Dioxide 22 mmol/L (22-30); Chloride 103 mmol/L (98-107); Cholesterol 131 mg/dL (0-200); Estimated Glomerular Filt Rate 57; Glucose 173 mg/dL (65-110); HDL Direct 41 mg/dL; Magnesium 2.2 mg/dL (1.6-2.3); Potassium 4.0 mmol/L (3.4-5.0); Sodium 136 mmol/L (137-145); Total Protein 7.5 g/dL (6.3-8.2); Triglycerides 183 mg/dL (<150)
[2024-11-24 19:38] LABS: Prostate Specific Antigen 2.2 ng/mL (< OR = 4.0)
[2024-11-24 19:53] LABS: MALB Creatinine Ratio 25.9 mg/g (0-30)
== END 2024-11-24 07:01 | disposition home or self-care (01) ==
PROVIDERS: PCP Nurse Practitioner Adult Health; Visit Provider Nurse Practitioner Adult Health
DX: E11.9 Type 2 diabetes mellitus without complications (principal); I10 Essential (primary) hypertension; Z12.5 Encounter for screening for malignant neoplasm of prostate; G47.33 Obstructive sleep apnea (adult) (pediatric)
CPT/HCPCS: 36415; 80053; 80061; 82043; 82565; 83735; 84153; G0103

== ENCOUNTER 2024-12-06 08:02 | Outpatient (CLI) | payer MEDICARE, SELFPAY ==
--- OUTSIDE RECORDS SUMMARY | 2024-12-06 08:18 | XMS_ITS | Encounter Summary ---
Author Organization [facility] Health Address [address] [place] [address] Care Team Providers Care Bioprocess Engineer Name Role Phone Alex Jones MD Primary Care Provider [phone] Jacob Tam MD Primary Care Provider [phone] Alex Jones MD Primary Care Provider [phone] Jacob Tam MD Primary Care Provider [phone] Encounter Details Date Type Department Care Team (Late st Contact Info) Description 11/22/2021 Ophth Exam [facility] [address] [place] [address] Estela Segura MD [address] [address] Social History Tobacco Use Types Packs/Day Years Used Date Smoking Tobacco: Never Smokeless Tobacco: Never AUDIT-C Answer Date Recorded Q1: How often do you have a drink containing alc ohol? Monthly or less 11/15/2021 Q2: How many drinks containi ng alcohol do you have on a typical day when you are drinking? 1 or 2 11/15/2021 Q3: How often do you have si x or more drinks on one occasion? 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 Answer Date of Assessment Author No 11/15/2021 10:56 AM GABBYT Otis Dinero RN * Is person blind or have serious difficulty seeing? Answer Date of Assessment Author No 11/15/2021 10:56 AM CDT Otis Dinero RN * Does person have serious difficulty walking/climbing stairs? Answer Date of Assessment Author No 11/15/2021 10:56 AM Otis Trevizo RN * Does person have difficulty dressing/bathing? Answer Date of Assessment Author No 11/15/2021 10:56 AM Otis Trevizo RN * Does person have difficulty doing errands alone? Answer Date of Assessment Author No 11/15/2021 10:56 AM Otis Trevizo RN documented as of this encounter Mental Status * Does person have difficulty concentrating/remembering/making decisions? Answer Entry Date Author No 11/15/2021 10:56 AM Otis Trevizo RN documented in this encounter Plan of Treatment Upcoming Encounters Date Type Department Care Team (Late st Contact Info) Description 11/28/2025 1:00 PM CDT Office Visit [facility] - Cardiology [address] [phone] Vania Burroughs MD [address] [address] documented as of this encounter Visit Diagnoses Not on filedocumented in this encounter Additional Health Concerns Infection Onset Date Last Indicated Resolved Time COVID-19 Under Investigation 12/01/2021 12/01/2021 12/01/2021 10:45 AM CDT COVID-19 Under Investigation 01/05/2022 01/05/2022 01/05/2022 4:32 PM SYSTEMS ARCHITECT COVID-19 Under Investigation 09/02/2023 09/02/2023 09/13/2023 4:33 AM CDT COVID-19 Under Investigation 09/29/2023 09/29/2023 10/10/2023 4:33 AM CDT documented as of this encounter Care Teams Bioprocess Engineer Relationship Specialty Start Date End Date Alex Jones MD PCP - General 05/31/20 03/17/22 Jacob Tam MD [address] [place] [phone] PCP - General Family Medicine 03/18/22 03/19/22 Alex Jones MD [address] [place] [address] [place] [address] PCP - General 03/20/22 05/05/22 Jacob Tam MD [address] [place] [address] PCP - General 05/06/22 documented as of this encounter
--- OUTSIDE RECORDS SUMMARY | 2024-12-06 08:18 | XMS_ITS | Encounter Summary ---
Author Organization [facility] Health Address [address] [facility] [address] Care Team Providers Care Form Drafter Name Role Phone Alex Jones MD Primary Care Provider Jacob Tam MD Primary Care Provider [phone] Alex Jones MD Primary Care Provider [phone] Jacob Tam MD Primary Care Provider [phone] Encounter Details Date Type Department Care Team (Late st Contact Info) Description 11/20/2021 Ophth Exam [facility] [address] [place] [address] Estela Segura MD [address] [address] Social History Tobacco Use Types [...] on file 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 Gender Identity Not on file Sexual Orientation [...] Description 11/28/2025 1:00 PM CDT Office Visit [facility] - Cardiology [address] [phone] Vania Burroughs MD [address] [address] documented as of this encounter Visit Diagnoses Not on filedocumented in this encounter Additional Health Concerns Infection Onset Date Last Indicated Resolved Time COVID-19 Under Investigation 12/01/2021 12/01/2021 12/01/2021 10:45 AM CDT COVID-19 Under Investigation 01/05/2022 01/05/2022 01/05/2022 4:32 PM SEMICONDUCTOR PROCESSOR COVID-19 Under Investigation 09/02/2023 09/02/2023 09/13/2023 4:33 AM CDT COVID-19 Under Investigation 09/29/2023 09/29/2023 10/10/2023 4:33 AM CDT documented as of this encounter Care Teams Form Drafter Relationship Specialty Start Date End Date Alex Jones MD PCP - General 05/31/20 03/17/22 Jacob Tam MD [address] [place] [address] PCP - General Family Medicine 03/18/22 03/19/22 Alex Jones MD [address] [place] [address] [place] [address] PCP - General 03/20/22 05/05/22 Jacob Tam MD [address] [place] [address] PCP - General 05/06/22 documented as of this encounter
--- OUTSIDE RECORDS SUMMARY | 2024-12-06 08:18 | XMS_ITS | Encounter Summary ---
Author Organization [facility] Health Address [address] [facility] [place] [address] Care Team Providers Care Underpresser Hand Name Role Phone Alex Jones MD Primary Care Provider [phone] Jacob Tam MD Primary Care Provider [phone] Alex Jones MD Primary Care Provider [phone] Jacob Tam MD Primary Care Provider [phone] Encounter Details Date Type Department Care Team (Late st Contact Info) Description 11/23/2021 Ophth Exam [facility] [address] [place] [address] Robb Lopez MD [address] [place] [address] Social History Tobacco Use Types Packs/Day [...] on file 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 Gender Identity Not on file Sexual Orientation [...] Description 11/28/2025 1:00 PM CDT Office Visit [facility] - Cardiology [address] [phone] Vania Burroughs MD [address] [address] documented as of this encounter Visit Diagnoses Not on filedocumented in this encounter Additional Health Concerns Infection Onset Date Last Indicated Resolved Time COVID-19 Under Investigation 12/01/2021 12/01/2021 12/01/2021 10:45 AM CDT COVID-19 Under Investigation 01/05/2022 01/05/2022 01/05/2022 4:32 PM DATA GOVERNANCE CONSULTANT COVID-19 Under Investigation 09/02/2023 09/02/2023 09/13/2023 4:33 AM CDT COVID-19 Under Investigation 09/29/2023 09/29/2023 10/10/2023 4:33 AM CDT documented as of this encounter Care Teams Underpresser Hand Relationship Specialty Start Date End Date Alex Jones MD PCP - General 05/31/20 03/17/22 Jacob Tam MD [address] [place] [phone] PCP - General Family Medicine 03/18/22 03/19/22 Alex Jones MD [address] [place] [address] [place] [address] PCP - General 03/20/22 05/05/22 Jacob Tam MD [address] [place] [address] PCP - General 05/06/22 documented as of this encounter
--- OUTSIDE RECORDS SUMMARY | 2024-12-06 08:18 | XMS_ITS | Encounter Summary ---
Author Organization [facility] Health Address [address] [facility] [place] [address] Care Team Providers Care Shirt Presser Name Role Phone Alex Jones MD Primary Care Provider [phone] Jacob Tam MD Primary Care Provider [phone] Alex Jones MD Primary Care Provider [phone] Jacob Tam MD Primary Care Provider [phone] Encounter Details Date Type Department Care Team (Late st Contact Info) Description 11/29/2021 Ophth Exam [facility] [address] [place] [address] Pi, [place] [address] [facility] [address] [place] [address] Social History Tobacco Use Types Packs/Day Years [...] on file 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 Answer Date of Assessment Author No 11/15/2021 10:56 AM Otis Trevizo RN * Is person blind or have serious difficulty seeing? Answer Date of Assessment Author No 11/15/2021 10:56 AM GABBYT Otis Dinero RN * Does person have serious difficulty walking/climbing stairs? Answer Date of Assessment Author No 11/15/2021 10:56 AM GABBYT Otis Dinero RN * Does person have difficulty dressing/bathing? [...] Description 11/28/2025 1:00 PM CDT Office Visit [facility] - [facility] [address] [address] Vania Burroughs MD [address] [place] [address] documented as of this encounter Visit Diagnoses Not on filedocumented in this encounter Additional Health Concerns Infection Onset Date Last Indicated Resolved Time COVID-19 Under Investigation 12/01/2021 12/01/2021 12/01/2021 10:45 AM CDT COVID-19 Under Investigation 01/05/2022 01/05/2022 01/05/2022 4:32 PM SALES FACILITATOR COVID-19 Under Investigation 09/02/2023 09/02/2023 09/13/2023 4:33 AM CDT COVID-19 Under Investigation 09/29/2023 09/29/2023 10/10/2023 4:33 AM CDT documented as of this encounter Care Teams Shirt Presser Relationship Specialty Start Date End Date Alex Jones MD PCP - General 05/31/20 03/17/22 Jacob Tam MD [address] [place] [address] PCP - General Family Medicine 03/18/22 03/19/22 Alex Jones MD [address] [place] [address] [place] [phone] PCP - General 03/20/22 05/05/22 Jacob Tam MD [address] [place] [address] PCP - General 05/06/22 documented as of this encounter
--- OUTSIDE RECORDS SUMMARY | 2024-12-06 08:18 | XMS_ITS | Encounter Summary ---
Author Organization [facility] Health Address [address] [place] [address] Care Team Providers Care Plastics Fitter Name Role Phone Alex Jones MD Primary Care Provider [phone] Jacob Tam MD Primary Care Provider [phone] Alex Jones MD Primary Care Provider [phone] Jacob Tam MD Primary Care Provider [phone] Encounter Details Date Type Department Care Team (Late st Contact Info) Description 12/05/2021 Ophth Exam [facility] [address] [place] [address] Pi, [place] [address] [facility] [address] [place] [address] Social History Tobacco Use Types [...] on file 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 Gender Identity Not on file Sexual Orientation [...] [facility] [address] [address] Vania Burroughs MD [address] [address] documented as of this encounter Visit Diagnoses Not on filedocumented in this encounter Additional Health Concerns Infection Onset Date Last Indicated Resolved Time COVID-19 Under Investigation 01/05/2022 01/05/2022 01/05/2022 4:32 PM CENTRAL SUPPLY CLERK COVID-19 Under Investigation 09/02/2023 09/02/2023 09/13/2023 4:33 AM CDT COVID-19 Under Investigation 09/29/2023 09/29/2023 10/10/2023 4:33 AM CDT documented as of this encounter Care Teams Plastics Fitter Relationship Specialty Start Date End Date Alex Jones MD PCP - General 05/31/20 03/17/22 Jacob Tam MD [address] [place] [phone] PCP - General Family Medicine 03/18/22 03/19/22 Alex Jones MD [address] [place] [address] PCP - General 03/20/22 05/05/22 Jacob Tam MD [address] [place] [address] PCP - General 05/06/22 documented as of this encounter
--- OUTSIDE RECORDS SUMMARY | 2024-12-06 08:18 | XMS_ITS | Encounter Summary ---
Author Organization [facility] Health Address [address] [place] [address] Care Team Providers Care Flavor Tank Tender Name Role Phone Alex Jones MD Primary Care Provider [phone] Jacob Tam MD Primary Care Provider [phone] Alex Jones MD Primary Care Provider [phone] Jacob Tam MD Primary Care Provider [phone] Encounter Details Date Type Department Care Team (Late st Contact Info) Description 11/21/2021 Ophth Exam [facility] [address] [place] [address] Estela Segura MD [address] [address] Social History Tobacco Use Types [...] on file 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 Gender Identity Not on file Sexual Orientation [...] Description 11/28/2025 1:00 PM CDT Office Visit [facility] - Cardiology [address] [phone] Vania Burroughs MD [address] [address] documented as of this encounter Visit Diagnoses Not on filedocumented in this encounter Additional Health Concerns Infection Onset Date Last Indicated Resolved Time COVID-19 Under Investigation 12/01/2021 12/01/2021 12/01/2021 10:45 AM CDT COVID-19 Under Investigation 01/05/2022 01/05/2022 01/05/2022 4:32 PM MONKEY BREEDER COVID-19 Under Investigation 09/02/2023 09/02/2023 09/13/2023 4:33 AM CDT COVID-19 Under Investigation 09/29/2023 09/29/2023 10/10/2023 4:33 AM CDT documented as of this encounter Care Teams Flavor Tank Tender Relationship Specialty Start Date End Date Alex Jones MD PCP - General 05/31/20 03/17/22 Jacob Tam MD [address] [place] [phone] PCP - General Family Medicine 03/18/22 03/19/22 Alex Jones MD [address] [place] [address] [place] [address] PCP - General 03/20/22 05/05/22 Jacob Tam MD [address] [place] [phone] PCP - General 05/06/22 documented as of this encounter
--- OUTSIDE RECORDS SUMMARY | 2024-12-06 08:18 | XMS_ITS | Encounter Summary ---
Author Organization [facility] Health Address [address] [facility] [place] [address] Care Team Providers Care Light Rail Train Operator Name Role Phone Alex Jones MD Primary Care Provider [phone] Jacob Tam MD Primary Care Provider [phone] Alex Jones MD Primary Care Provider [phone] Jacob Tam MD Primary Care Provider [phone] Encounter Details Date Type Department Care Team (Late st Contact Info) Description 11/26/2021 Ophth Exam [facility] [address] [place] [address] Pi, [place] [address] [facility] [address] [place] [address] Social History Tobacco Use Types [...] on file 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 Gender Identity Not on file Sexual Orientation [...] [facility] [address] [address] Vania Burroughs MD [address] [place] [address] documented as of this encounter Visit Diagnoses Not on filedocumented in this encounter Additional Health Concerns Infection Onset Date Last Indicated Resolved Time COVID-19 Under Investigation 12/01/2021 12/01/2021 12/01/2021 10:45 AM CDT COVID-19 Under Investigation 01/05/2022 01/05/2022 01/05/2022 4:32 PM GIZZARD SKIN REMOVER COVID-19 Under Investigation 09/02/2023 09/02/2023 09/13/2023 4:33 AM CDT COVID-19 Under Investigation 09/29/2023 09/29/2023 10/10/2023 4:33 AM CDT documented as of this encounter Care Teams Light Rail Train Operator Relationship Specialty Start Date End Date Alex Jones MD PCP - General 05/31/20 03/17/22 Jacob Tam MD [address] [place] [address] PCP - General Family Medicine 03/18/22 03/19/22 Alex Jones MD [address] [place] [address] [place] [phone] PCP - General 03/20/22 05/05/22 Jacob Tam MD [address] [place] [address] PCP - General 05/06/22 documented as of this encounter
--- OUTSIDE RECORDS SUMMARY | 2024-12-06 08:18 | XMS_ITS | Encounter Summary ---
Author Organization [facility] Health Address [address] [facility] [place] [address] Care Team Providers Care Car Groomer Name Role Phone Alex Jones MD Primary Care Provider [phone] Jacob Tam MD Primary Care Provider [phone] Alex Jones MD Primary Care Provider [phone] Jacob Tam MD Primary Care Provider [phone] Encounter Details Date Type Department Care Team (Late st Contact Info) Description 11/25/2021 Ophth Exam [facility] [address] [place] [address] Pi, [place] [address] [facility] [address] [place] [address] Social History Tobacco Use Types [...] on file 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 Gender Identity Not on file Sexual Orientation [...] [facility] [address] [address] Vania Burroughs MD [address] [place] [address] documented as of this encounter Visit Diagnoses Not on filedocumented in this encounter Additional Health Concerns Infection Onset Date Last Indicated Resolved Time COVID-19 Under Investigation 12/01/2021 12/01/2021 12/01/2021 10:45 AM CDT COVID-19 Under Investigation 01/05/2022 01/05/2022 01/05/2022 4:32 PM ONLINE SERVICES MANAGER COVID-19 Under Investigation 09/02/2023 09/02/2023 09/13/2023 4:33 AM CDT COVID-19 Under Investigation 09/29/2023 09/29/2023 10/10/2023 4:33 AM CDT documented as of this encounter Care Teams Car Groomer Relationship Specialty Start Date End Date Alex Jones MD PCP - General 05/31/20 03/17/22 Jacob Tam MD [address] [place] [address] PCP - General Family Medicine 03/18/22 03/19/22 Alex Jones MD [address] [place] [address] [place] [phone] PCP - General 03/20/22 05/05/22 Jacob Tam MD [address] [place] [address] PCP - General 05/06/22 documented as of this encounter
--- OUTSIDE RECORDS SUMMARY | 2024-12-06 08:18 | XMS_ITS | Clinical Summary ---
Author Organization [facility] Address [address] [facility] [place] [address] Care Team Providers Care Mobile Equipment Servicer Name Role Phone Jacob Tam MD Primary Care Provider [phone] Source Comments [facility],non-owned Affiliates and Associated Physician Practices is amultiple site organization consisting of ambulatory clinics and hospital sitesin [place], [place], [place] and [place]. This disclosure is being madepursuant to the Care Everywhere program and may not contain all information available regarding this patient. Last updated 17.[facility] Allergies Active Allergy Reactions Criticality Noted Date Comments Banana Anaphylaxis High 11/16/2021 Sacubitril-Valsartan Vomiting 04/11/2022 Fish Allergy Anaphylaxis High 11/16/2021 Can have shellfish Lisinopril Cough 11/29/2024 Medications * Be aware that medications may not be up to date on this document. Alwaysverify current medications with the patient. metFORMIN (Glucophage) 1000 MG tablet Take 1 (one) tablet by mouth once daily Active empagliflozin (Jardiance) 10 MG tablet Take 1 (one) tablet by mouth once daily 2 Active rosuvastatin (Crestor) 40 MG tablet Take 1 (one) tablet by mouth once daily 2 Active melatonin 3 MG tablet Take 1 (one) tablet by mouth at bedtime 2 Active clopidogrel (plaVIX) 75 MG tablet Take 1 (one) tablet by mouth once daily 2 Active carvedilol (Coreg) 3.125 MG tablet Take 1 (one) tablet by mouth 2 times daily with morning and evening meal 2 Active acetaminophen (Tylenol) 325 MG tablet Take 2 (two) tablets by mouth every 6 hours as needed for Fever or Pain Maximum allowable Acetaminophen amount = 4 Grams (4000 mg) / 24 hours. 60 tablet 3 Active Eliquis 5 MG tablet Take 1 (one) tablet by mouth every 12 hours 3 Active hydroCHLOROthia zide (Hydrodiuril) 25 MG tabletIndicatio ns:Atrial fibrillation, unspecified type (HCC) Take 0.5 (one-half) tablet by mouth once daily 45 tablet 2 4 Active hydroCHLOROthia zide (Hydrodiuril) 25 MG tabletIndicatio ns:Atrial fibrillation, unspecified type (HCC) Take 0.5 (one-half) tablet by mouth once daily 45 tablet 3 4 Active EPINEPHrine (Epipen) 0.3 MG/0.3ML auto-injector pen 4 Active Ozempic, 0.25 or 0.5 MG/DOSE, 2 MG/3ML SOPN INJECT 0.5 MG UNDER THE SKIN WEEKLY 5 Active losartan (Cozaar) 25 MG tabletIndicatio ns:Hypertension ,ST-Segment Elevation Myocardial Infarction Take 1 (one) tablet by mouth once daily Reasons: High Blood Pressure, ST-Segment Elevation Heart Attack 900 tablet 3 5 Active Active Problems Problem Noted Date Diagnosed Date 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 10/20/2023 Abnormal stress test 09/02/2023 Acute deep vein thrombosis ( DVT) of femoral vein of both lower extremities 01/06/2022 Stridor 01/05/2022 Vocal cord paralysis 01/05/2022 Dyspnea on exertion 01/05/2022 History of cardiac arrest 01/05/2022 Acute saddle pulmonary embol ism, unspecified whether acute cor pulmonale present 01/05/2022 Elevated LFTs 11/23/2021 Status post multiple cerebral infarctions 2021 MSSA (methicillin susceptibl e Staphylococcus aureus) pneumonia 11/22/2021 CONSTANTINO (acute kidney injury) 11/18/2021 Diabetic ketoacidosis withou t coma associated with type 2 diabetes mellitus 11/18/2021 Cardiac arrest with ventricular fibrillation Acute ST elevation myocardia l infarction (STEMI) involving other coronary artery of inferior wall 11/14/2021 Type 2 diabetes mellitus wit h hyperglycemia, with long-term current use of insulin Resolved Problems Problem Noted Date Diagnosed Date Resolved Date Anemia 11/22/2021 12/26/2021 Lung collapse 11/21/2021 11/22/2021 Acute encephalopathy 11/19/2021 022 Acute respiratory failure with hypoxia 11/18/2021 12/26/2021 Cardiac arrest 11/14/2021 11/17/2021 Overview (11/14/2021): Added automatically from request for surgery [id number] Encounters Date Type Department Care Team Description 11/29/2024 1:00 PM CDT Office Visit [facility] - Cardiology [address] [address] Vania Burroughs MD Atrial fibrillation, unspecified type (HCC) (Primary Dx) 11/29/2024 Travel 11/15/2024 3:30 PM CDT Office Visit [facility] - ENT [address] [place] [phone] Kit Goodman MD Posterior glottic stenosis (Primary Dx) 11/15/2024 Travel from Last 3 Months Immunizations Immunization Administration Dates Next Due FLU VACCINE TRI IIV3 SPLIT IM (FLUVIRIN) 021,01/02/2014 INFLUENZA VACCINE 12/01/2016 INFLUENZA VACCINE, CELL CULT URE, QUADR. (FLUCELVAX QUADRIVALENT; 6MO+) (CCIIV4) 12/20/2019 INFLUENZA VACCINE, QUADR. (F LUZONE; FLULAVAL; FLUARIX; AFLURIA QUADRIVALENT; 6MO+), 0.5 ML (IIV4) 01/08/2022 PNEUMOCOCCAL PPV VACCINE 04/03/2021 ZOSTER VACCINE, LIVE 05/07/2022,04/03/2021 Family History Medical History Relation Name Comments Hypertension Mother Relation Name Status Comments Mother Alive Social History Tobacco Use Types Packs/Day Years Used Date Smoking Tobacco: Never Smokeless Tobacco: Never Tobacco Cessation:Counseling Given: Not Answered Alcohol Use Standard Drinks/Week Comments Yes 0 (1 standard drink = 0.6 oz pur e alcohol) soc AUDIT-C Answer Date Recorded Q1: How often do you have a drink containing alc ohol? Monthly or less 10/20/2023 Q2: How many drinks containi ng alcohol do you have on a typical day when you are drinking? 1 or 2 10/20/2023 Q3: How often do you have si x or more drinks on one occasion? 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 Gender Identity Not on file Sexual Orientation Not on file Last Filed Vital Signs Vital Sign Reading Time Taken Comments Blood Pressure 136/84 11/29/2024 12:53 PM CDT Pulse 52 11/29/2024 12:53 PM CDT Temperature 37.1 C (98.7 F) 11/29/2024 12:53 PM CDT Respiratory Rate 16 11/29/2024 12:53 PM CDT Oxygen Saturation 100% 11/29/2024 12:53 PM CDT Inhaled Oxygen Concentration 28% 12/18/2021 1 1:23 PM CDT Weight 89.8 kg (198 lb) 11/29/2024 12:53 PM CDT Height 175.3 cm (5' 9.02) 11/29/2024 12:53 PM C DT Body Mass Index 29.23 11/29/2024 12:53 PM CDT Plan of Treatment Upcoming Encounters Date Type Department Care Team (Late st Contact Info) Description 11/28/2025 1:00 PM CDT Office Visit [facility] - Cardiology [address] [phone] Vania Burroughs MD [phone] [place] [address] Health Maintenance Due Date Last Done Comments COLOGUARD (AGES 45-75) - COLON CA SCREENING 1958 COLON MONITORING 1958 COLONOSCOPY - COLON CA SCREENING 1958 CT COLONOGRAPHY - COLON CA SCREENING 1960 Colorectal Cancer Screening 1958 FIT - COLON CA SCREENING 1958 FLEX SIG - COLON CA SCREENING 1958 DTAP/TDAP/TD VACCINES (1 - Tdap) 1977 Respiratory Syncytial Virus (RSV) Vaccine Pt: or over 60 yrs (1 - Risk 60-74 years 1-dose series) 2018 DIABETES-FOOT EXAM WITH MONOFILAMENT 11/18/2021 PNEUMOCOCCAL VACCINE 50+ (2 of 2 - PCV) 04/03/2022 04/03/2021 DIABETES-HGB A1C 05/15/2022 11/15/2021 ZOSTER VACCINE (2 of 3) 07/02/2022 05/07/2022, 04/03 DIABETES RETINOPATHY SCREENING 11/27/2023 11/26/2021, 11/20/2021 DEPRESSION SCREENING 02/24/2024 DIABETES - URINE PROTEIN SCREENING 02/24/2024 MEDICARE AWV CALENDAR YEAR 2024 DIABETES-SERUM CREATININE 10/08/20242023, 01/10/2022, 01/09/2022, Additional history exists COVID-19 VACCINE (3 - season) 2024 01/07/2021, 04/27/2020 INFLUENZA VACCINE (#1) 2024 , 11/29/2020, 12/20/2019, Additional history exists HEPATITIS C SCREENING Completed 12/06/2021 HEPATITIS B VACCINE Aged Out No longe r eligible based on patient's age to complete this topic HIB VACCINE Aged Out No longer eligi ble based on patient's age to complete this topic HPV VACCINE Aged Out No longer eligi ble based on patient's age to complete this topic MENINGOCOCCAL (Group B) VACCINE SHARED DECISION-MAKING Aged Out No longer eligible based on patient's age to complete this topic MENINGOCOCCAL GROUPS A/C/Y/W VACCINE Aged Out No longer eligible based on patient's age to complete this topic Medical Devices Implanted Type Area Wheat Cleaner Device Identifier Shelf Expiration Date Model / Serial / Lot Sys Cor Stent Sng Xd Mr 3.5mm 24mm Dlv - [id number] Implanted:Qty: 1 on 10/20/2023 by Blair Herring MD at [facility] Coronary Stent [employer] [id number] 03/09/2025 [id number] / [id number] / [id number] Sys Cor Stent Sng Xd Mr 3.5mm 32mm Dlv - [id number] Implanted:Qty: 1 on 11/14/2021 by Karri Hill MD at [facility] Scientific [employer] [id number] 01/21/2023 [id number] / [id number] / [id number] Description:RCA Sys Cor Stent Sng Xd Mr 3.5mm 8mm Dlv - [id number] Implanted:Qty: 1 on 11/14/2021 by Karri Hill MD at [facility] [employer] 11/28/2022 [id number] / [id number] / [id number] Description:RCA Sys Cor Stent Sng Xd Mr 3.5mm 16mm Dlv - [id number] Implanted:Qty: 1 on 11/14/2021 by Karri Hill MD at [facility] [employer] [id number] 06/18/2023 [id number] / [id number] / [id number] Description:RCA Sys Cor Stent Sng Xd Mr 3.5mm 8mm Dlv - [id number] Implanted:Qty: 1 on 11/14/2021 by Karri Hill MD at [facility] [employer] [id number] 11/28/2022 [id number] / [id number] / [id number] Description:RCA Sys Cor Stent Sng Xd Mr 3.5mm 20mm Dlv - [id number] Implanted:Qty: 1 on 11/14/2021 by Karri Hill MD at [facility] [employer] [id number] 02/08/2023 [id number] / [id number] / [id number] Description:LAD Sys Cor Stent Sng Xd Mr 5mm 12mm Dlv Sys - [id number] Implanted:Qty: 1 on 11/14/2021 by Karri Hill MD at [facility] [employer] [id number] 11/12/2022 [id number] / [id number] / [id number] Description:LAD Sys Cor Stent Sng Xd Mr 3.5mm 32mm Dlv - [id number] Implanted:Qty: 1 on 11/14/2021 by Karri Hill MD at [facility] [employer] [id number] 01/21/2023 [id number] / [id number] / [id number] Description:LAD Sys Cor Stent Sng Xd Mr 3mm 24mm Dlv Sys - [id number] Implanted:Qty: 1 on 10/20/2023 by Blair Herring MD at [facility] Right: Coronary [employer] [id number] 04/29/2025 [id number] / [id number] / [id number] Procedures Procedure Name Priority Date/Time Associated Diagnosis Comments EKG 12-LEAD Routine 11/29/2024 12:58 PM CDT Atrial fibrillation, unspecified type (HCC) BASIC METABOLIC PANEL (CALCIUM TOTAL) STAT 10/09/2023 8:57 AM CDT Abnormal stress test HEPATITIS C AB SCREEN RFLX NAAT QUANT Routine 12/06/2021 6:45 AM CDT HEMOGLOBIN A1C Routine 11/15/2021 1:[address] elevation myocardial infarction (STEMI) involving other coronary artery of inferior wall from Last 3 Months or Most Recently Relevant to Health Maintenance Results * EKG 12-Lead (11/29/2024 12:58 PM CDT) [facility] Ventricular Rate 61 BPM [facility] Atrial Rate 61 BPM [facility] P-R Interval 156 ms [facility] QRS Duration ms 98 ms [facility] Q-T Interval ms 410 ms [facility] QTC Calculation (Bezet) 412 ms [facility] Calculated P Mitchell 69 degrees [facility] Calculated R Mitchell 73 degrees [facility] Calculated T Mitchell 81 degrees [facility] Interpretation EKG NORMAL SINUS RHYTHM WITH SINUS ARRHYTHMIA NORMAL ECG WHEN COMPARED WITH ECG OF 20-OCT-2023 13:06, SINUS RHYTHM HAS REPLACED ATRIAL FIBRILLATION VENT. RATE HAS DECREASED BY [address] NO LONGER DEPRESSED IN ANTEROLATERAL LEADS NONSPECIFIC T WAVE ABNORMALITY NO LONGER EVIDENT IN INFERIOR LEADS NONSPECIFIC T WAVE ABNORMALITY NOW EVIDENT IN LATERAL LEADS Confirmed by MD KAYE, VANIA ([id number]) on 11/30/2024 10:03:32 AM [facility] 11/29/2024 12:5 8 PM CDT 11/30/2024 10:03 AM CDT us Vania Burroughs MD ECG ORDERABLES Edited Result - Final MARISEL RENNER * (ABNORMAL) BASIC METABOLIC PANEL (CALCIUM TOTAL) (10/09/2023 8:57 AM CDT) [facility] BUN 23 7 - 26 mg/dL 10/09/2023 9:40 AM [facility] Creatinine 1.29(H) 0.71 - 1.16 mg/dL 10/09/2023 9:40 AM [facility] Sodium 139 136 - 145 mmol/L 10/09/2023 9:40 AM [facility] Potassium 4.2 3.5 - 4.5 mmol/L 10/09/2023 9:40 AM [facility] Chloride 109(H) 98 - 107 mmol/L 10/09/2023 9:40 AM [facility] CO2 23 22 - 29 mmol/L 10/09/2023 9:40 AM [facility] Glucose 219(H) 70 - 115 mg/dL 10/09/2023 9:40 AM CDT [facility] Calcium 9.8 8.4 - 10.2 mg/dL 10/09/2023 9:40 AM [facility] Anion Gap 7 6 - 16 10/09/2023 9:40 AM [facility] BUN/Creatinine Ratio 18 7 - 23 10/09/2023 9:40 AM [facility] Osmolality Calculated 298(H) 275 - 295 mOsm/kg 10/09/2023 9:40 AM [facility] eGFR by CKD-EPI 62(L) >=90 mL/min/1.7 3 m2 10/09/2023 9:40 AM [facility] Blood BLOOD SPECIMEN / Unknown Venipuncture / Unknown 10/09/2023 8:57 AM CDT 10/09/2023 9:08 AM CDT us Edwige Stafford APRNNETTE LAB - CHEMISTRY ORDE SHAD Final Result Performing Organization Address City/[facility]/ZIP Co de Phone Number [address] [address], [employer] [phone] * HEPATITIS C AB SCREEN RFLX NAAT QUANT (12/06/2021 6:45 AM CDT) [facility] Hepatitis C Antibody Non-react timbo Non-reac tive 12/06/2021 7:39 AM [facility] Comment:Hepatitis C Antibody screen indicates no serologic evidence of past or current infection with Hepatitis C Virus. Patients with unexplained liver disease who are immunocompromised or suspected of having acute Hepatitis C infection may benefit from Nucleic Acid Test (GEORGINA) for Hepatitis C Viral RNA to confirm Hepatitis C status. Blood BLOOD SPECIMEN / Unknown Venipuncture / Unknown 12/06/2021 6:45 AM CDT 12/06/2021 6:54 AM CDT us Gloria Pulido MD LAB - CHEMISTRY ORDERABLES Fin al Result Performing Organization Address [facility]/ZIP Co de Phone Number [address] [address], [employer] [phone] * (ABNORMAL) HEMOGLOBIN A1C (11/15/2021 1:39 AM CDT) Hemoglobin A1c 7.8(H) <=5.6 % 11/15/2021 8:55 AM CDT [facility] Estimated Average Glucose 177 mg/dL 11/15/2021 8:55 AM CDT [facility] Comment: HbA1c Interpretation: Normal : < 5.7% Pre-diabetes: 5.7-6.4% Diabetes: Equal to or greater than 6.5% Test results diagnostic of diabetes should be repeated for confirmation. Treatment target values recommended by ADA and other clinical organizations should be used to evaluate metabolic control in patients. Reference: [place] Diabetes Association, Standards of Care in Diabetes -2020 In patients 70 years and older consider HbA1c target range of 7.0-7.5% (Reference: Alex Berg et al. JAMDA. 2012) The Sebia assay for the measurement of HbA1c is a National Glycohemoglobin Standardization Program (NGSP) certified method. Blood BLOOD SPECIMEN / Unknown Venipuncture / Unknown 11/15/2021 1:39 AM CDT 11/15/2021 1:51 AM CDT Sabine Umaña MD LAB - CHEMISTRY ORDERABLES Final Result [facility] [address] [place] [address], [facility] [phone] from Last 3 Months or Most Recently Relevant to Health Maintenance Insurance [employer] [place] [address] [employer] MEDICARE ADV Advance Directives Documents on File Type Date Recorded Patient House Wirer Expl anation Adv Directive/Living Will/POA 01/08/2022 2:26 PM Adv Directive/Living Will/POA 01/08/2022 11:20 AM * Full Code (Latest Code Status on File) Date Activated Date Inactivated Comments 10/20/2023 1:10 PM 10/20/2023 7:46 PM * Full Code Date Activated Date Inactivated Comments 10/09/2023 12:37 PM 10/09/2023 5:38 PM * Full Code Date Activated Date Inactivated Comments 04/30/2022 8:24 PM 05/01/2022 11:14 AM * Full Code Date Activated Date Inactivated Comments 01/06/2022 1:22 AM 01/10/2022 10:41 PM * Full Code Date Activated Date Inactivated Comments 11/14/2021 11:40 PM 12/26/2021 6:15 PM Care Teams Mobile Equipment Servicer Relationship Specialty Start Date End Date Jacob Tam MD [address] [place] [address] [place] [place] [address] PCP - General 05/06/22
[2024-12-06 19:13] LABS: Hemoglobin A1C 7.1 % (<5.7)
== END 2024-12-06 08:03 | disposition home or self-care (01) ==
PROVIDERS: PCP Nurse Practitioner Adult Health; Visit Provider Nurse Practitioner Adult Health
DX: E11.9 Type 2 diabetes mellitus without complications (principal)
CPT/HCPCS: 36415; 83036